=== PATIENT | female | born 1995 | race Caucasian/White ===

== ENCOUNTER 2022-04-29 08:00 | Outpatient (RCR) | payer OTHER, SELFPAY ==
--- NOTE | 2022-03-01 22:04 | P.PNPS_ITS ---
TMS Daily Progress Note Daily TMS Progress Note Date of Service: 03/01/22 Week #: 1 Treatment #(09-02): 1 PHQ-9 Pre-Treatment (08-30): 23 PHQ-9 Most Recent (08-30): 23 Reviewed: TMS Tech Note Reviewed Verification: I have reviewed the TMS Precision Machinist Note and agree with the contents. The patient remains a candidate to continue TMS treatment per protocol. Assessment and Plan (1) Depression, major, severe recurrence: Status: Acute (2) Post traumatic stress disorder (PTSD): Status: Acute Plan tms mapping completed
--- NOTE | 2022-03-01 22:11 | P.PNPS_ITS ---
TMS Daily Progress Note Daily TMS Progress Note Date of Service: 02/28/22 Week #: 1 Treatment #(09-02): 2 PHQ-9 Pre-Treatment (08-30): 23 PHQ-9 Most Recent (08-30): 23 Reviewed: TMS Tech Note Reviewed Verification: I have reviewed the TMS Liquid Loader Note and agree with the contents. The patient remains a candidate to continue TMS treatment per protocol.
--- NOTE | 2022-03-04 22:41 | HO.TMSDAILY2 ---
TMS Daily Progress Note Daily TMS Progress Note Date of Service: 03/04/22 Week #: 1 Treatment #(09-02): 4 PHQ-9 Pre-Treatment (08-30): 23 PHQ-9 Most Recent (08-30): 23 Reviewed: TMS Tech Note Reviewed Verification: I have reviewed the TMS Convention Services Manager Note and agree with the contents. The patient remains a candidate to continue TMS treatment per protocol.
--- NOTE | 2022-03-05 21:48 | HO.TMSDAILY2 ---
TMS Daily Progress Note Daily TMS Progress Note Date of Service: 03/05/22 Week #: 1 Treatment #(09-02): 5 PHQ-9 Pre-Treatment (08-30): 23 PHQ-9 Most Recent (08-30): 23 Reviewed: TMS Tech Note Reviewed Verification: I have reviewed the TMS Product Marketing Executive Note and agree with the contents. The patient remains a candidate to continue TMS treatment per protocol. Assessment and Plan (1) Depression, major, severe recurrence: Status: Acute (2) Post traumatic stress disorder (PTSD): Status: Acute Plan pt adjusting to tx
--- NOTE | 2022-03-11 21:33 | P.PNPS_ITS ---
TMS Daily Progress Note Daily TMS Progress Note Date of Service: 03/06/22 Week #: 2 Treatment #(09-02): 6 PHQ-9 Pre-Treatment (08-30): 23 PHQ-9 Most Recent (08-30): 23 Reviewed: TMS Tech Note Reviewed Verification: I have reviewed the TMS Contract Specialist Note and agree with the contents. The patient remains a candidate to continue TMS treatment per protocol.
--- NOTE | 2022-03-11 21:34 | HO.TMSDAILY2 ---
TMS Daily Progress Note Daily TMS Progress Note Date of Service: 03/07/22 Week #: 2 Treatment #(09-02): 7 PHQ-9 Pre-Treatment (08-30): 23 PHQ-9 Most Recent (08-30): 23 Reviewed: TMS Tech Note Reviewed Verification: I have reviewed the TMS Casting House Worker Note and agree with the contents. The patient remains a candidate to continue TMS treatment per protocol.
--- NOTE | 2022-03-11 21:36 | HO.TMSDAILY2 ---
TMS Daily Progress Note Daily TMS Progress Note Date of Service: 03/11/22 Week #: 2 Treatment #(09-02): 8 PHQ-9 Pre-Treatment (08-30): 23 PHQ-9 Most Recent (08-30): 23 Reviewed: TMS Tech Note Reviewed Verification: I have reviewed the TMS Director Of Retail Merchandising Note and agree with the contents. The patient remains a candidate to continue TMS treatment per protocol.
--- NOTE | 2022-03-11 21:38 | HO.TMSDAILY2 ---
TMS Daily Progress Note Daily TMS Progress Note Date of Service: 03/11/22 Week #: 2 Treatment #(09-02): 9 PHQ-9 Pre-Treatment (08-30): 23 PHQ-9 Most Recent (08-30): 23 Reviewed: TMS Tech Note Reviewed Verification: I have reviewed the TMS Carpenter Cradle And Dolly Note and agree with the contents. The patient remains a candidate to continue TMS treatment per protocol.
--- NOTE | 2022-03-13 08:33 | HO.TMSDAILY2 ---
TMS Daily Progress Note Daily TMS Progress Note Date of Service: 03/13/22 Week #: 2 Treatment #(09-02): 10 PHQ-9 Pre-Treatment (08-30): 23 PHQ-9 Most Recent (08-30): 23 Reviewed: TMS Tech Note Reviewed Verification: I have reviewed the TMS Manufacturing Engineering Director Note and agree with the contents. The patient remains a candidate to continue TMS treatment per protocol.
--- NOTE | 2022-03-15 09:31 | HO.TMSDAILY2 ---
TMS Daily Progress Note Daily TMS Progress Note Date of Service: 03/14/22 Week #: 3 Treatment #(09-02): 11 PHQ-9 Pre-Treatment (08-30): 23 PHQ-9 Most Recent (08-30): 23 Reviewed: TMS Tech Note Reviewed Verification: I have reviewed the TMS Senior Account Clerk Note and agree with the contents. The patient remains a candidate to continue TMS treatment per protocol.
--- NOTE | 2022-03-15 09:31 | HO.TMSDAILY2 ---
TMS Daily Progress Note Daily TMS Progress Note Date of Service: 03/15/22 Week #: 3 Treatment #(09-02): 12 PHQ-9 Pre-Treatment (08-30): 23 PHQ-9 Most Recent (08-30): 23 Reviewed: TMS Tech Note Reviewed Verification: I have reviewed the TMS Policyholder Information Clerk Note and agree with the contents. The patient remains a candidate to continue TMS treatment per protocol.
--- NOTE | 2022-03-18 09:32 | P.PNPS_ITS ---
TMS Daily Progress Note Daily TMS Progress Note Date of Service: 03/18/22 Week #: 3 Treatment #(09-02): 13 PHQ-9 Pre-Treatment (08-30): 23 PHQ-9 Most Recent (08-30): 23 Reviewed: TMS Tech Note Reviewed Verification: I have reviewed the TMS Regulator Pin Inserter Note and agree with the contents. The patient remains a candidate to continue TMS treatment per protocol. no change noted
--- NOTE | 2022-03-22 16:31 | P.PNPS_ITS ---
TMS Daily Progress Note Daily TMS Progress Note Date of Service: 03/19/22 Week #: 3 Treatment #(09-02): 14 PHQ-9 Pre-Treatment (08-30): 23 PHQ-9 Most Recent (08-30): 23 Reviewed: TMS Tech Note Reviewed Verification: I have reviewed the TMS Calibration Laboratory Technician Note and agree with the contents. The patient remains a candidate to continue TMS treatment per protocol. still no change
--- NOTE | 2022-03-22 16:36 | P.PNPS_ITS ---
TMS Daily Progress Note Daily TMS Progress Note Date of Service: 03/20/22 Week #: 3 Treatment #(09-02): 15 PHQ-9 Pre-Treatment (08-30): 23 PHQ-9 Most Recent (08-30): 23 Reviewed: TMS Tech Note Reviewed Verification: I have reviewed the TMS Open Claims Representative Note and agree with the contents. The patient remains a candidate to continue TMS treatment per protocol.
--- NOTE | 2022-03-22 16:39 | HO.TMSDAILY2 ---
TMS Daily Progress Note Daily TMS Progress Note Date of Service: 03/21/22 Week #: 4 Treatment #(09-02): 16 PHQ-9 Pre-Treatment (08-30): 23 PHQ-9 Most Recent (08-30): 23 Reviewed: TMS Tech Note Reviewed Verification: I have reviewed the TMS Press Setter Note and agree with the contents. The patient remains a candidate to continue TMS treatment per protocol. Assessment and Plan (1) Depression, major, severe recurrence: Status: Acute (2) Post traumatic stress disorder (PTSD): Status: Acute Plan would consider remap
--- NOTE | 2022-03-22 16:41 | HO.TMSDAILY2 ---
TMS Daily Progress Note Daily TMS Progress Note Date of Service: 03/22/22 Week #: 4 Treatment #(09-02): 17 PHQ-9 Pre-Treatment (08-30): 23 PHQ-9 Most Recent (08-30): 23 Reviewed: TMS Tech Note Reviewed Verification: I have reviewed the TMS Specialist Wound Care Note and agree with the contents. The patient remains a candidate to continue TMS treatment per protocol.
--- NOTE | 2022-03-25 16:43 | P.PNPS_ITS ---
TMS Daily Progress Note Daily TMS Progress Note Date of Service: 03/25/22 Week #: 4 Treatment #(09-02): 18 PHQ-9 Pre-Treatment (08-30): 23 PHQ-9 Most Recent (08-30): 23 Reviewed: TMS Tech Note Reviewed Verification: I have reviewed the TMS Aged Or Disabled Carer Note and agree with the contents. The patient remains a candidate to continue TMS treatment per protocol. Assessment and Plan (1) Post traumatic stress disorder (PTSD): Status: Acute (2) Depression, major, severe recurrence: Status: Acute Plan some improvement noted consider remap
--- NOTE | 2022-03-26 22:14 | P.PNPS_ITS ---
TMS Daily Progress Note Daily TMS Progress Note Date of Service: 03/26/22 Week #: 4 Treatment #(09-02): 19 PHQ-9 Pre-Treatment (08-30): 23 PHQ-9 Most Recent (08-30): 23 Reviewed: TMS Tech Note Reviewed Verification: I have reviewed the TMS Risk And Insurance Consultant Note and agree with the contents. The patient remains a candidate to continue TMS treatment per protocol. Assessment and Plan (1) Post traumatic stress disorder (PTSD): Status: Acute (2) Depression, major, severe recurrence: Status: Acute Plan PT may benefit from remapping
--- NOTE | 2022-04-02 14:33 | HO.TMSDAILY2 ---
TMS Daily Progress Note Daily TMS Progress Note Date of Service: 03/28/22 Treatment #(09-02): 19 PHQ-9 Pre-Treatment (08-30): 23 PHQ-9 Most Recent (08-30): 23 Verification: I have reviewed the TMS Music Producer Note and agree with the contents. The patient remains a candidate to continue TMS treatment per protocol.
--- NOTE | 2022-04-02 15:16 | P.PNPS_ITS ---
TMS Daily Progress Note Daily TMS Progress Note Date of Service: 03/28/22 Week #: 4 Treatment #(09-02): 20 PHQ-9 Pre-Treatment (08-30): 23 PHQ-9 Most Recent (08-30): 18 Reviewed: TMS Mapping/Re-mapping completed Verification: I have reviewed the TMS Automation And Controls Instructor Note and agree with the contents. The patient remains a candidate to continue TMS treatment per protocol. Pt seen remapping completed no c/o side effects remapping completed Assessment and Plan (1) Depression, major, severe recurrence: Status: Acute (2) Post traumatic stress disorder (PTSD): Status: Acute Plan remapping completed monitor response
--- NOTE | 2022-04-04 09:57 | P.PNPS_ITS ---
TMS Daily Progress Note Daily TMS Progress Note Date of Service: 04/10/22 Week #: 5 Treatment #(09-02): 25 PHQ-9 Pre-Treatment (08-30): 23 PHQ-9 Most Recent (08-30): 18 Reviewed: TMS Tech Note Reviewed Verification: I have reviewed the TMS Formal Wear Rental Clerk Note and agree with the contents. The patient remains a candidate to continue TMS treatment per protocol.
--- NOTE | 2022-04-09 21:06 | P.PNPS_ITS ---
TMS Daily Progress Note Daily TMS Progress Note Date of Service: 04/09/22 Week #: 6 Treatment #(09-02): 27 PHQ-9 Pre-Treatment (08-30): 23 PHQ-9 Most Recent (08-30): 18 Reviewed: TMS Tech Note Reviewed Verification: I have reviewed the TMS Medicare Sales Executive Note and agree with the contents. The patient remains a candidate to continue TMS treatment per protocol. Assessment and Plan (1) Post traumatic stress disorder (PTSD): Status: Acute (2) Depression, major, severe recurrence: Status: Acute Plan ? twitching couple times day unclear sx
--- NOTE | 2022-04-10 21:04 | P.PNPS_ITS ---
TMS Daily Progress Note Daily TMS Progress Note Date of Service: 04/05/22 Week #: 6 Treatment #(09-02): 26 PHQ-9 Pre-Treatment (08-30): 23 PHQ-9 Most Recent (08-30): 18 Reviewed: TMS Tech Note Reviewed Verification: I have reviewed the TMS Calender Wind Up Helper Note and agree with the contents. The patient remains a candidate to continue TMS treatment per protocol. Assessment and Plan (1) Depression, major, severe recurrence: Status: Acute (2) Post traumatic stress disorder (PTSD): Status: Acute Plan continue plan of care
--- NOTE | 2022-04-10 21:09 | P.PNPS_ITS ---
TMS Daily Progress Note Daily TMS Progress Note Date of Service: 04/10/22 Week #: 6 Treatment #(09-02): 28 PHQ-9 Pre-Treatment (08-30): 23 PHQ-9 Most Recent (08-30): 18 Reviewed: TMS Tech Note Reviewed Verification: I have reviewed the TMS Cushion Worker Note and agree with the contents. The patient remains a candidate to continue TMS treatment per protocol.
--- NOTE | 2022-04-11 09:53 | HO.TMSDAILY2 ---
TMS Daily Progress Note Daily TMS Progress Note Date of Service: 04/11/22 Week #: 6 Treatment #(09-02): 29 PHQ-9 Pre-Treatment (08-30): 23 PHQ-9 Most Recent (08-30): 18 Reviewed: TMS Tech Note Reviewed Verification: I have reviewed the TMS Environmental Compliance Specialist Note and agree with the contents. The patient remains a candidate to continue TMS treatment per protocol. Assessment and Plan (1) Post traumatic stress disorder (PTSD): Status: Acute (2) Depression, major, severe recurrence: Status: Acute Plan ? tremor will review
--- NOTE | 2022-04-15 12:58 | P.PNPS_ITS ---
TMS Daily Progress Note Daily TMS Progress Note Date of Service: 04/15/22 Week #: 6 Treatment #(09-02): 30 PHQ-9 Pre-Treatment (08-30): 23 PHQ-9 Most Recent (08-30): 18 Reviewed: TMS Tech Note Reviewed Verification: I have reviewed the TMS Wool Cleaner Note and agree with the contents. The patient remains a candidate to continue TMS treatment per protocol. Assessment and Plan (1) Post traumatic stress disorder (PTSD): Status: Acute (2) Depression, major, severe recurrence: Status: Acute Plan saul range of affect
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
--- NOTE | 2022-04-17 22:50 | P.PNPS_ITS ---
TMS Daily Progress Note Daily TMS Progress Note Date of Service: 04/17/22 Week #: 7 Treatment #(09-02): 31 PHQ-9 Pre-Treatment (08-30): 23 PHQ-9 Most Recent (08-30): 18 Reviewed: TMS Tech Note Reviewed Verification: I have reviewed the TMS Lithograph Designer Note and agree with the contents. The patient remains a candidate to continue TMS treatment per protocol.
--- NOTE | 2022-04-22 17:38 | HO.TMSDAILY2 ---
TMS Daily Progress Note Daily TMS Progress Note Date of Service: 04/22/22 Week #: 7 Treatment #(09-02): 33 PHQ-9 Pre-Treatment (08-30): 23 PHQ-9 Most Recent (08-30): 18 Reviewed: TMS Tech Note Reviewed Verification: I have reviewed the TMS Criminalist Technician Note and agree with the contents. The patient remains a candidate to continue TMS treatment per protocol.No clwear improvement noted
--- NOTE | 2022-04-24 21:47 | HO.TMSDAILY2 ---
TMS Daily Progress Note Daily TMS Progress Note Date of Service: 04/24/22 Week #: 8 Treatment #(09-02): 34 PHQ-9 Pre-Treatment (08-30): 23 PHQ-9 Most Recent (08-30): 18 Reviewed: TMS Tech Note Reviewed Verification: I have reviewed the TMS Product Operations Associate Note and agree with the contents. The patient remains a candidate to continue TMS treatment per protocol.
--- NOTE | 2022-04-24 21:55 | P.PNPS_ITS ---
TMS Daily Progress Note Daily TMS Progress Note Date of Service: 04/24/22 Week #: 8 Treatment #(09-02): 34 PHQ-9 Pre-Treatment (08-30): 23 PHQ-9 Most Recent (08-30): 18 Reviewed: TMS Tech Note Reviewed Verification: I have reviewed the TMS Trailer Tank Truck Driver Note and agree with the contents. The patient remains a candidate to continue TMS treatment per protocol.No change to this point
--- NOTE | 2022-04-26 12:19 | HO.TMSDAILY2 ---
TMS Daily Progress Note Daily TMS Progress Note Date of Service: 04/26/22 Week #: 8 Treatment #(09-02): 35 PHQ-9 Pre-Treatment (08-30): 23 PHQ-9 Most Recent (08-30): 18 Reviewed: TMS Tech Note Reviewed Verification: I have reviewed the TMS Engraver Pantograph Note and agree with the contents. The patient remains a candidate to continue TMS treatment per protocol.
--- NOTE | 2022-04-29 22:38 | HO.TMSDAILY2 ---
TMS Daily Progress Note Daily TMS Progress Note Date of Service: 04/29/22 Week #: 8 Treatment #(09-02): 36 PHQ-9 Pre-Treatment (08-30): 23 PHQ-9 Most Recent (08-30): 18 Reviewed: TMS Tech Note Reviewed Verification: I have reviewed the TMS Press Room Supervisor Note and agree with the contents. The patient remains a candidate to continue TMS treatment per protocol. Assessment and Plan (1) Depression, major, severe recurrence: Status: Acute (2) Post traumatic stress disorder (PTSD): Status: Acute Plan Patient has not shown significant improvement patient seen post treatment discussed additional options including apavamk patient will continue to see her psychiatric nurse practitioner Lexus lau
== END 2022-08-03 23:59 | disposition home or self-care (01) ==
LOC: HO.PTMS 08:00
PROVIDERS: Visit Provider Psychiatry & Neurology Psychiatry
DX: F33.2 Major depressive disorder, recurrent severe without psychotic features (principal); F43.10 Post-traumatic stress disorder, unspecified
CPT/HCPCS: 90868; 90869

== ENCOUNTER → 2023-01-27 09:58 | Outpatient (BNVA) | payer OTHER, SELFPAY | PROVIDERS: PCP Nurse Practitioner Adult Health; Visit Provider Anesthesiology ==

== ENCOUNTER 2023-03-04 15:07 | Outpatient (AMB) | payer OTHER, SELFPAY ==
--- NOTE | 2023-03-04 15:08 | MHC.OFFVIS ---
Intake Vital Signs 03/04/23 15:15 Height 5 ft 6 in Weight 270 lb BMI 43.6 BP 131/96 H Blood Pressure Location Rt brachial Position Sitting Pulse 102 H Pulse Source Pulse Oximeter Pulse Oximetry (%) 96 Oxygen Delivery Method Room Air Intake Visit Reasons: ONE MONTH FOLLOW UP Intake Note: pain today 01/11 Fresco Artist Required: No Accompanied by: Self / Same As Patient Allergies lamotrigine [From Lamictal] Allergy (Mild, Verified 01/27/23 10:04) rash HPI HPI Comments History of Present Illness Details Patient presents today for medication review and follow up. Reports recent 02/13/23-02/21/23 psychiatric crisis, was in [facility] inpatient, for first time inpatient, but reports having done virtual partial for psychiatric to depression, anxiety and PTSD. Reports good tolarance with Baclofen and notices not getting sharp pain anymore but continues to endorse widespread body pain mainly in her arms and legs which they describe as aching. Patient has not started physical therapy yet due to psychiatric inpatient stay and will reach out to our PT department to schedule first session. Denies any recent cough, cold, infection, fever or other significant changes in medical history since last office visit. PRIOR: Sravanthi Hoffman) is very pleasant 27 years old female who presents in my office with complains on pain all over the body. She reports her pain affects her shoulders bilateral arms bilateral hands her neck lower back bilateral thighs bilateral knees bilateral lower legs and bilateral feet. She reports that this pain started in 2018. She denies any inciting events. She reports her pain on average 6/10. She reports most significant pain in the area of the bilateral hands and bilateral forearms. She stated that this pain was related to overuse of the hands when she was in college studying arts and painting. She was under care of sponge packer and appropriate workup was made to rule out modal logical conditions and put diagnosis of fibromyalgia for this patient. She is suffering from narcolepsy and unable to sleep normally. She can take care of herself she can not function normally she can not do activities of daily living. She is working full-time. She tried Lyrica and gabapentin for her pain. Appropriate escalation seem to be done for this patient she reports 1800 of gabapentin maximal does with no improvement and no side effects. She admits Lyrica also did not help her pain, she does not remember if Lyrica gave her any significant pain improvement. In terms of tissue damage she reports her pain is hot burning, searing, tingling, stinging, dull, heavy, tiring, exhausting, spreading, piercing, tight, tearing. She never had any images of her spine. She never had formal physical therapy address to fibromyalgia. She had only occupational therapy for the arm and hand pain with minimal relief. She has 10s unit at home and she uses it with minimal relief. Her past medical history significant for headaches, fatigue anxiety and depression narcolepsy heart murmur shortness of breath and ovarian cyst. She denies any past surgical history. She denies smoking cigarettes she drinks once a week small amount of alcohol she drinks coffee and caffeinated beverages and she consumes cannabis products. [facility] Medical History Depression, major, severe recurrence Post traumatic stress disorder (PTSD) Review of Systems Const All systems reviewed & are unremarkable except as noted in HPI and below Physical Exam Vital Signs: Last Vital Signs Pulse 102 H 03/04/23 15:15 BP 131/96 H 03/04/23 15:15 Pulse Ox 96 03/04/23 15:15 Oxygen Delivery Method Room Air 03/04/23 15:15 BMI result Body Mass Index 43.6 General: Appears afebrile. Alert and oriented. Mood and affect appropriate. Follows and participates in conversation appropriately. Respiratory effort is unlabored. Able to transition from sit to stand unassisted. Ambulates with bilaterally normal heel strike and toe off. Results Reviewed Results Reviewed: No imaging reports are available for review today. Assessment & Plan Assessment & Plan (1) Fibromyalgia: Code(s): M79.7 - Fibromyalgia (2) Chronic pain syndrome: Code(s): G89.4 - Chronic pain syndrome (3) Myofascial pain: Code(s): M79.18 - Myalgia, other site Plan Patient has been tolerated Baclofen well without any side effects, good tolerance and change in pain quality from sharp pain to aching pain, mainly in arms and legs and decreased muscle stiffness in neck. Will slowly increase Baclofen to 20 mg BID. Continue to monitor for any side effects and counseled patient not to stop medication abruptly due to undesired side effects of withdrawl which we reviewed in greater detail. Start Physical therapy as planned. Continue daily physical activity, good posture, adequate hydration, weight optimization and sleep hygiene. All questions and concerns have been answered and patient agreed with the plan. Follow up with Dr. Workman for medication review and sooner if needed. Medications: Changed From baclofen 10 mg PO TID 30 days 90 tabs 6RF G89.4 - Chronic pain syndrome, M79.7 - Fibromyalgia To baclofen 20 mg PO BID 30 days 60 tabs 2RF muscle spasms, fibromyalgia G89.4 - Chronic pain syndrome, M79.7 - Fibromyalgia Coding Level of Care Code Est Pt Level 4 (80210) Diagnoses Fibromyalgia M79.7 Chronic pain syndrome G89.4 Myofascial pain M79.18
[2023-03-04 15:15] VITALS: BP 131/96; PULSE 102; O2SAT 96; BMI 43.6
== END 2023-03-04 15:32 | disposition home or self-care (01) ==
PROVIDERS: PCP Nurse Practitioner Adult Health; Visit Provider Nurse Practitioner Family
DX: M79.7 Fibromyalgia (principal); G89.4 Chronic pain syndrome
CPT/HCPCS: 99214

== ENCOUNTER → 2023-03-04 15:07 | Outpatient (BNVA) | payer OTHER, SELFPAY | PROVIDERS: PCP Nurse Practitioner Adult Health; Visit Provider Nurse Practitioner Family ==

== ENCOUNTER 2023-06-18 16:00 | Outpatient (RCR) | payer OTHER, SELFPAY ==
--- NOTE | 2023-05-28 09:00 | MHC.PT.EP ---
[facility] [place] Office [place] Office [place] Office [address] Lupe Dewey [address] [phone] F: [phone] F: [phone] F: [phone] F: [phone] Physical Therapy Plan of Care Date of Evaluation: 05/28/23 Date of Surgery: NA Diagnosis: Chronic pain syndrome Fibromyalgia Assessment: Mina is a 28 year old patient who is referred to PT for chronic pain syndrome, fibromyalgia . They report of having pain in their entire body for about 10-12 years. They were given the above diagnosis about 4 years back. Per pt their B LE symptoms got worse about 1 year back. On PT examination she presented with 7/10 pain throughout their body, lumbar and B LE gross ROM WFL, decreased strength in TrA and B LE, altered posture, balance and gait. Due to these impairments they have pain with all ADLS. They would benefit from skilled PT to address the aforementioned impairments and improve tolerance to functional activities. Frequency and Duration: The patient will be seen 2/week for 6 weeks Short Term Goals: 1. Pt will demonstrate initiation of HEP and be independent with them in 2 weeks. 2. Pt will have 50% decrease in pain which will help improve tolerance to standing and walking (can perform activities for 30 minutes without pain) in 3 weeks. Jail Goals: 1. Pt will demonstrate an increase in muscle strength by 1 grade which will help them ambulate without AD in 5 weeks. 2. Pt will be independent with HEP for symptom management and maintenance following d/c in 6 weeks. Treatment Plan: Modalities to reduce pain, spasms and effusion. Manual therapy to restore motion and function. Therapeutic exercise to improve strength and flexibility. Neuromuscular re-education for posture and balance. Therapeutic activities to return to functional activities of daily living. Electronically signed by: Joy Mcpherson PT DPT Please sign and return to therapist. Thank you for your referral.
--- NOTE | 2023-06-23 16:05 | MHC.PT.DC ---
[facility] [place] Office [place] Office [place] Office [address] Lupe Dewey [address] [phone] F: [phone] F: [phone] F: [phone] F: [phone] Physical Therapy Discharge Report Diagnosis: Chronic pain syndrome Fibromyalgia Date of Surgery: NA Date of Evaluation: 05/28/23 Date of Discharge: 06/23/23 Treatments to Date: 7 Cancellations to Date: 0 No Shows to Date: 0 Discharge Status: Improved Function Independent with HEP Discharge Summary: Mina completed 7 PT visits and has made significant improvements. She is independent with all her HEP. She is therefore being d/c from PT. Mina was in agreement with the plan. Electronically signed by: Joy Mcpherson, PT DPT Please sign and return to therapist. Thank you for your referral.
== END 2023-06-23 16:06 | disposition home or self-care (01) ==
LOC: HO.PT 16:00
PROVIDERS: PCP Nurse Practitioner Adult Health; Visit Provider Anesthesiology
DX: S93.402A Sprain of unspecified ligament of left ankle, initial encounter (principal); M21.41 Flat foot [pes planus] (acquired), right foot; M21.42 Flat foot [pes planus] (acquired), left foot
CPT/HCPCS: 97110; 97112; 97162

== ENCOUNTER 2023-06-25 12:54 | Outpatient (AMB) | payer OTHER, SELFPAY ==
--- NOTE | 2023-06-25 13:03 | A.OFFVIS_ITS ---
Intake Vital Signs 06/25/23 13:07 Height 5 ft 6 in Weight 291 lb BMI 47.0 BP 142/92 H Blood Pressure Location Lt brachial Position Sitting Respiration 18 Pulse 98 Pulse Source Pulse Oximeter Pulse Oximetry (%) 99 Oxygen Delivery Method Room Air Intake Visit Reasons: med review- must keep this appt do not RS/conf Allergies lamotrigine [From Lamictal] Allergy (Mild, Verified 06/25/23 13:06) rash HPI HPI Comments History of Present Illness Details Mina presents to the office today for follow up, medication review. Patient initially evaluated by Dr Workman for fibromyalgia and started on bacl ofen. Dose was escalated at last visit with Hermelinda MYSTERY SHOPPER. Patient reports no change in pain since starting the baclofen. Overdue for sleep study, has narcolepsy treated with medication. No longer falling asleep during the day but waking up constantly throughout the night. Has never completed CBT for sleep or pain. Currently going to [employer] and swimming once weekly but only helps while in the pool, feels strain afterwards. 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 Takes meds as prescribed. Denies SI/HI/SH. Prior: Patient presents today for medication review and follow up. Reports recent 02/13/23-02/21/23 psychiatric crisis, was in [facility] inpatient, for first time inpatient, but reports having done virtual partial for psychiatric to depression , anxiety and PTSD. Reports good tolarance with Baclofen and notices not getting sharp pain anymore but continues to endorse widespread body pain mainly in her arms and legs which they describe as aching. Patient has not started physical therapy yet due to psychiatric inpatient stay and will reach out to our PT department to schedule first session. Denies any recent cough, cold, infection, fever or other significant changes in medical history since last office visit. PRIOR: Sravanthi Hoffman) is very pleasant 27 years old female who presents in my office with complains on pain all over the body. She reports her pain affects her shoulders bilateral arms bilateral hands her neck lower back bilateral thighs bilateral knees bilateral lower legs and bilateral feet. She reports that this pain started in 2018. She denies any inciting events. She reports her pain on average 6/10. She reports most significant pain in the area of the bilateral hands and bilateral forearms. She stated that this pain was related to overuse of the hands when she was in college studying arts and painting. She was under care of wharfinger chief and appropriate workup was made to rule out modal logical conditions and put diagnosis of fibromyalgia for this patient. She is suffering from narcolepsy and unable to sleep normally. She can take care of herself she can not function normally she can not do activities of daily living. She is working full-time. She tried Lyrica and gabapentin for her pain. Appropriate escalation seem to be done for this patient she reports 1800 of gabapentin maximal does with no improvement and no side effects. She admits Lyrica also did not help her pain, she does not remember if Lyrica gave her any significant pain improvement. In terms of tissue damage she reports her pain is hot burning, searing, tingling, stinging, dull, heavy, tiring, exhausting, spreading, piercing, tight, tearing. She never had any images of her spine. She never had formal physical therapy address to fibromyalgia. She had only occupational therapy for the arm and hand pain with minimal relief. She has 10s unit at home and she uses it with minimal relief. Her past medical history significant for headaches, fatigue anxiety and depression narcolepsy heart murmur shortness of breath and ovarian cyst. She denies any past surgical history. She denies smoking cigarettes she drinks once a week small amount of alcohol she drinks coffee and caffeinated beverages and she consumes cannabis products. [facility] Medical History Depression, major, severe recurrence Post traumatic stress disorder (PTSD) Review of Systems Const All systems reviewed & are unremarkable except as noted in HPI and below Physical Exam General: awake, alert, oriented. Answers questions appropriately. Fully engaged in examination. Skin: warm, dry, intact HEENT: Normocephalic. Hearing intact. Cardiac: External chest normal in appearance. Respiratory: No cough, audible wheezing or stridor. Abdomen: without gross distension. MS: No obvious swelling or deformities. Neurological: Oriented to person, place, time and situation. Thought process intact. ambulates with a cane. Psychiatric: Appropriate mood and affect. Good judgment and insight. Assessment & Plan Assessment & Plan (1) Fibromyalgia: Code(s): M79.7 - Fibromyalgia (2) Chronic pain syndrome: Code(s): G89.4 - Chronic pain syndrome (3) Myofascial pain: Code(s): M79.18 - Myalgia, other site Plan Mina presents to the office today for follow up. Reports no change in symptoms with baclofen, does not wish to continue on this medication. Has enough at home to taper off, instructed on tapering plan. Verbalizes understanding. Will call to schedule sleep study Will schedule follow up with Rheumatology Referral placed for CBT for pain and sleep to [facility]rett in [place]. Follow up in the office after CBT, sooner if needed. Orders: Referrals Behavioral Health Referral M79.7 - Fibromyalgia Coding Level of Care Code Est Pt Level 3 (10527) Diagnoses Fibromyalgia M79.7 Chronic pain syndrome G89.4 Myofascial pain M79.18
[2023-06-25 13:07] VITALS: BP 142/92; PULSE 98; RESP 18; O2SAT 99; BMI 47.0
== END 2023-06-25 13:36 | disposition home or self-care (01) ==
PROVIDERS: PCP Nurse Practitioner Adult Health; Visit Provider Registered Nurse Emergency
DX: G89.4 Chronic pain syndrome (principal); M79.18 Myalgia, other site; Z79.891 Long term (current) use of opiate analgesic
CPT/HCPCS: 99213

== ENCOUNTER → 2023-06-25 12:54 | Outpatient (BNVA) | payer OTHER, SELFPAY | PROVIDERS: PCP Nurse Practitioner Adult Health; Visit Provider Registered Nurse Emergency ==

== ENCOUNTER 2024-05-05 13:53 | Outpatient (AMB) | payer MEDICAID, SELFPAY ==
[2024-05-05 14:02] VITALS: BP 144/93; PULSE 124; O2SAT 99; BMI 49.2
--- NOTE | 2024-05-05 14:02 | A.OFFVIS_ITS ---
Vital Signs 05/05/24 14:02 Height 5 ft 6 in Weight 305 lb BMI 49.2 BP 144/93 H Blood Pressure Location Rt brachial Position Sitting Pulse 124 H Pulse Source Pulse Oximeter Pulse Oximetry (%) 99 Oxygen Delivery Method Room Air Intake Visit Reasons: Chronic pain Syndrome Allergies lamotrigine [From Lamictal] Allergy (Mild, Verified 05/05/24 13:59) rash Medication List - Last Reconciled 05/05/24 by Lynda Graham amitriptyline 50 mg PO BEDTIME aripiprazole 15 mg PO DAILY vprfobl-yxvasasqnfmxc-jfyjukia 250-250-65 mg (Excedrin Extra Strength) 1 tab PO Q4-6H PRN desvenlafaxine succinate ER 100 mg PO DAILY levonorgestrel (Mirena) intrauterine lorazepam 0.5 mg PO TID PRN methylphenidate HCl (Ritalin) 10 mg PO BID methylphenidate HCl ER (Concerta) 27 mg PO QAM modafinil 400 mg PO DAILY HPI Comments Details: Patient presents back to the office today follow up Last visit here 06/2023 Since last visit pain has worsened. They have stopped taking baclofen since last visit Pain is ?all over ? Has tried gabapentin and Lyrica in the past, is unsure what doses they were taking but would be willing to retry Prior: Mina presents to the office today for follow up, medication review. Patient initially evaluated by Dr Workman for fibromyalgia and started on baclofen. Dose was escalated at last visit with Hermelinda TRANSPORT SPECIALIST. Patient reports no change in pain since starting the baclofen. Overdue for sleep study, has narcolepsy treated with medication. No longer fa lling asleep during the day but waking up constantly throughout the night. Has never completed CBT for sleep or pain. Currently going to [employer] and swimming once weekly but only helps while in the pool, feels strain afterwards. 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 Takes meds as prescribed. Denies SI/HI/SH. Prior: Patient presents today for medication review and follow up. Reports recent 02/13/23-02/21/23 psychiatric crisis, was in [facility] inpatient, for first time inpatient, but reports having done virtual partial for psychiatric to depre ssion, anxiety and PTSD. Reports good tolarance with Baclofen and notices not getting sharp pain anymore but continues to endorse widespread body pain mainly in her arms and legs which they describe as aching. Patient has not started physical therapy yet due to psychiatric inpatient stay and will reach out to our PT department to schedule first session. Denies any recent cough, cold, infection, fever or other significant changes in medical history since last office visit. PRIOR: Sravanthi Hoffman) is very pleasant 27 years old female who presents in my office with complains on pain all over the body. She reports her pain affects her shoulders bilateral arms bilateral hands her neck lower back bilateral thighs bilateral knees bilateral lower legs and bilateral feet. She reports that this pain started in 2018. She denies any inciting events. She reports her pain on average 6/10. She reports most significant pain in the area of the bilateral hands and bilateral forearms. She stated that this pain was related to overuse of the hands when she was in college studying arts and painting. She was under care of non destructive testing supervisor and appropriate workup was made to rule out modal logical conditions and put diagnosis of fibromyalgia for this patient. She is suffering from narcolepsy and unable to sleep normally. She can take care of herself she can not function normally she can not do activities of daily living. She is working full-time. She tried Lyrica and gabapentin for her pain. Appropriate escalation seem to be done for this patient she reports 1800 of gabapentin maximal does with no improvement and no side effects. She admits Lyrica also did not help her pain, she does not remember if Lyrica gave her any significant pain improvement. In terms of tissue damage she reports her pain is hot burning, searing, tingling, stinging, dull, heavy, tiring, exhausting, spreading, piercing, tight, tearing. She never had any images of her spine. She never had formal physical therapy address to fibromyalgia. She had only occupational therapy for the arm and hand pain with minimal relief. She has 10s unit at home and she uses it with minimal relief. Her past medical history significant for headaches, fatigue anxiety and depression narcolepsy heart murmur shortness of breath and ovarian cyst. She denies any past surgical history. She denies smoking cigarettes she drinks once a week small amount of alcohol she drinks coffee and caffeinated beverages and she consumes cannabis products. [facility] Medical History Depression, major, severe recurrence Post traumatic stress disorder (PTSD) Review of Systems Const All systems reviewed & are unremarkable except as noted in HPI and below Physical Exam Vital Signs: Last Vital Signs Pulse 124 H 05/05/24 14:02 BP 144/93 H 05/05/24 14:02 Pulse Ox 99 05/05/24 14:02 Oxygen Delivery Method Room Air 05/05/24 14:02 BMI result Body Mass Index 49.2 General: awake, alert, oriented. Answers questions appropriately. Fully engaged in examination. Skin: warm, dry, intact HEENT: Normocephalic. Hearing intact. Cardiac: External chest normal in appearance. Respiratory: No cough, audible wheezing or stridor. Abdomen: without gross distension. MS: No obvious swelling or deformities. Neurological: Oriented to person, place, time and situation. Thought process intact. ambulates with a cane. Psychiatric: Appropriate mood and affect. Good judgment and insight. Assessment & Plan Assessment & Plan (1) Fibromyalgia: Code(s): M79.7 - Fibromyalgia Category: Medical (2) Chronic pain syndrome: Code(s): G89.4 - Chronic pain syndrome Category: Medical (3) Myofascial pain: Code(s): M79.18 - Myalgia, other site Category: Medical Plan Mina presents to the office today for follow up. Will try gabapentin 300 mg p.o. t.i.d.. Patient advised on cautions views. Follow up in 6 weeks, sooner if needed. Medications: New gabapentin 300 mg PO TID 90 caps 1RF Coding Level of Care Code Est Pt Level 3 (34108) Complex EM visit Add On G2211 Diagnoses Fibromyalgia M79.7 Chronic pain syndrome G89.4 Myofascial pain M79.18
== END 2024-05-05 14:17 | disposition home or self-care (01) ==
PROVIDERS: PCP Nurse Practitioner Adult Health; Visit Provider Registered Nurse Emergency
DX: M79.7 Fibromyalgia (principal); G89.4 Chronic pain syndrome; M79.18 Myalgia, other site
CPT/HCPCS: 99213; G2211

== ENCOUNTER → 2024-05-05 13:53 | Outpatient (BNVA) | payer MEDICAID, SELFPAY | PROVIDERS: PCP Nurse Practitioner Adult Health; Visit Provider Registered Nurse Emergency | DX: M79.7 Fibromyalgia (principal); M79.18 Myalgia, other site; G89.4 Chronic pain syndrome | CPT/HCPCS: 99212 ==

== ENCOUNTER 2024-06-17 13:00 | Outpatient (AMB) | payer MEDICAID, SELFPAY ==
--- NOTE | 2024-06-17 13:13 | MHC.OFFVIS ---
Intake Visit Reasons: 6 weeks F/U Allergies lamotrigine [From Lamictal] Allergy (Mild, Verified 05/05/24 13:59) rash HPI Comments Details: Telephone visit today completed for follow-up, medication management Her last visit prescribed gabapentin 300 mg 3 times daily. Patient has been taking this consistently up until the weekend when they developed a stomach virus and was vomiting. Overall they feel like the gabapentin has helped the pain some, would like to remain on this dose as they are tolerating it well with no notable side effects Prior: Patient presents back to the office today follow up Last visit here 06/2023 Since last visit pain has worsened. They have stopped taking baclofen since last visit Pain is ?all over ? Has tried gabapentin and Lyrica in the past, is unsure what doses they were taking but would be willing to retry Prior: Mina presents to the office today for follow up, medication review. Patient initially evaluated by Dr Workman for fibromyalgia and started on baclofen. Dose was escalated at last visit with Hermelinda BOILER HOUSE MECHANIC. Patient reports no change in pain since starting the baclofen. Overdue for sleep study, has narcolepsy treated with medication. No longer falling asleep during the day but waking up constantly throughout the night. Has never completed CBT for sleep or pain. Currently going to [employer] and swimming once weekly but only helps while in the pool, feels strain afterwards. 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 Takes meds as prescribed. Denies SI/HI/SH. Prior: Patient presents today for medication review and follow up. Reports recent 02/13/23-02/21/23 psychiatric crisis, was in [facility] inpatient, for first time inpatient, but reports having done virtual partial for psychiatric to depression, anxiety and PTSD. Reports good tolarance with Baclofen and notices not getting sharp pain anymore but continues to endorse widespread body pain mainly in her arms and legs which they describe as aching. Patient has not started physical therapy yet due to psychiatric inpatient stay and will reach out to our PT department to schedule first session. Denies any recent cough, cold, infection, fever or other significant changes in medical history since last office visit. PRIOR: Sravanthi Hoffman) is very pleasant 27 years old female who presents in my office with complains on pain all over the body. She reports her pain affects her shoulders bilateral arms bilateral hands her neck lower back bilateral thighs bilateral knees bilateral lower legs and bilateral feet. She reports that this pain started in 2018. She denies any inciting events. She reports her pain on average 6/10. She reports most significant pain in the area of the bilateral hands and bilateral forearms. She stated that this pain was related to overuse of the hands when she was in college studying arts and painting. She was under care of short filler bunch machine operator and appropriate workup was made to rule out modal logical conditions and put diagnosis of fibromyalgia for this patient. She is suffering from narcolepsy and unable to sleep normally. She can take care of herself she can not function normally she can not do activities of daily living. She is working full-time. She tried Lyrica and gabapentin for her pain. Appropriate escalation seem to be done for this patient she reports 1800 of gabapentin maximal does with no improvement and no side effects. She admits Lyrica also did not help her pain, she does not remember if Lyrica gave her any significant pain improvement. In terms of tissue damage she reports her pain is hot burning, searing, tingling, stinging, dull, heavy, tiring, exhausting, spreading, piercing, tight, tearing. She never had any images of her spine. She never had formal physical therapy address to fibromyalgia. She had only occupational therapy for the arm and hand pain with minimal relief. She has 10s unit at home and she uses it with minimal relief. Her past medical history significant for headaches, fatigue anxiety and depression narcolepsy heart murmur shortness of breath and ovarian cyst. She denies any past surgical history. She denies smoking cigarettes she drinks once a week small amount of alcohol she drinks coffee and caffeinated beverages and she consumes cannabis products. [facility] Medical History Depression, major, severe recurrence Post traumatic stress disorder (PTSD) Review of Systems Const All systems reviewed & are unremarkable except as noted in HPI and below Physical Exam Telephone visit only, physical exam and vital signs deferred Telehealth Telehealth Telehealth Platform: Telephone Location of provider rendering services: practice address Location of patient: address on file Patient Identification confirmed using: Name, : Yes Telehealth method: voice only Patient verbally consented to treatment: Yes Patient verbally consented to billing insurance company: Yes Patient informed of any privacy concerns related to visit: Yes Minutes spent on Phone/Video with Pt.: 8 Assessment & Plan Assessment & Plan (1) Fibromyalgia: Code(s): M79.7 - Fibromyalgia Category: Medical (2) Chronic pain syndrome: Code(s): G89.4 - Chronic pain syndrome Category: Medical (3) Myofascial pain: Code(s): M79.18 - Myalgia, other site Category: Medical Plan Telephone visit completed today for follow-up Continue with gabapentin 300 mg p.o. 3 times daily. Follow up in 3 months, sooner if needed. Medications: Refilled gabapentin 300 mg PO TID 90 caps 3RF Coding Level of Care Code Tele Est Pt Level 3 (61913) Complex EM visit Add On G2211 Diagnoses Fibromyalgia M79.7 Chronic pain syndrome G89.4 Myofascial pain M79.18
== END 2024-06-17 13:17 | disposition home or self-care (01) ==
LOC: HO.PMC 13:00
PROVIDERS: PCP Nurse Practitioner Adult Health; Visit Provider Registered Nurse Emergency
DX: M79.7 Fibromyalgia (principal); G89.4 Chronic pain syndrome; M79.18 Myalgia, other site
CPT/HCPCS: 99213; G2211

== ENCOUNTER → 2024-06-17 13:00 | Outpatient (BNVA) | payer MEDICAID, SELFPAY | PROVIDERS: PCP Nurse Practitioner Adult Health; Visit Provider Registered Nurse Emergency ==

== ENCOUNTER 2024-10-13 12:54 | Outpatient (AMB) | payer MEDICAID, SELFPAY ==
[2024-10-13 13:01] VITALS: BP 141/85; PULSE 100; RESP 16; O2SAT 99; BMI 50.0
--- NOTE | 2024-10-13 13:01 | A.OFFVIS_ITS ---
Vital Signs 10/13/24 13:01 Height 5 ft 6 in Weight 310 lb BMI 50.0 BP 141/85 H Blood Pressure Location Lt radial Position Sitting Respiration 16 Pulse 100 Pulse Source Pulse Oximeter Pulse Oximetry (%) 99 Oxygen Delivery Method Room Air Intake Visit Reasons: 4 month f/u Manager Customer Required: No Allergies lamotrigine [From Lamictal] Allergy (Mild, Verified 10/13/24 13:02) rash Medication List - Last Reconciled 10/13/24 by Marti Dennis LPN amitriptyline 50 mg PO BEDTIME aripiprazole 15 mg PO DAILY [id number] 250-250-65 mg (Excedrin Extra Strength) 1 tab PO Q4-6H PRN desvenlafaxine succinate ER 100 mg PO DAILY gabapentin 300 mg PO TID levonorgestrel (Mirena) intrauterine lorazepam 0.5 mg PO TID PRN methylphenidate HCl (Ritalin) 10 mg PO BID methylphenidate HCl ER (Concerta) 27 mg PO QAM solriamfetol (Sunosi) 150 mg PO DAILY HPI Comments Details: Patient presents back to the office today for follow-up chronic pain. Has been taking gabapentin but does not feel like this is providing much relief. Would like to taper off. Reports baclofen previously prescribed also did not help. Has tried Lyrica in the past without relief. Would be willing to try alternative muscle relaxer. Prior: Telephone visit today completed for follow-up, medication management Her last visit prescribed gabapentin 300 mg 3 times daily. Patient has been taking this consistently up until the weekend when they developed a stomach virus and was vomiting. Overall they feel like the gabapentin has helped the pain some, would like to remain on this dose as they are tolerating it well with no notable side effects Prior: Patient presents back to the office today follow up Last visit here 06/2023 Since last visit pain has worsened. They have stopped taking baclofen since last visit Pain is ?all over ? Has tried gabapentin and Lyrica in the past, is unsure what doses they were taking but would be willing to retry Prior: Mina presents to the office today for follow up, medication review. Patient initially evaluated by Dr Workman for fibromyalgia and started on baclofen. Dose was escalated at last visit with Hermelinda PULP MILL TEAM LEADER. Patient reports no change in pain since starting the baclofen. Overdue for sleep study, has narcolepsy treated with medication. No longer falling asleep during the day but waking up constantly throughout the night. Has never completed CBT for sleep or pain. Currently going to [employer] and swimming once weekly but only helps while in the pool, feels strain afterwards. 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 Takes meds as prescribed. Denies SI/HI/SH. Prior: Patient presents today for medication review and follow up. Reports recent 02/13/23-02/21/23 psychiatric crisis, was in [facility] inpatient, for first time inpatient, but reports having done virtual partial for psychiatric to depression, anxiety and PTSD. Reports good tolarance with Baclofen and notices not getting sharp pain anymore but continues to endorse widespread body pain mainly in her arms and legs which they describe as aching. Patient has not started physical therapy yet due to psychiatric inpatient stay and will reach out to our PT department to schedule first session. Denies any recent cough, cold, infection, fever or other significant changes in medical history since last office visit. PRIOR: Sravanthi Hoffman) is very pleasant 27 years old female who presents in my office with complains on pain all over the body. She reports her pain affects her shoulders bilateral arms bilateral hands her neck lower back bilateral thighs bilateral knees bilateral lower legs and bilateral feet. She reports that this pain started in 2018. She denies any inciting events. She reports her pain on average 6/10. She reports most significant pain in the area of the bilateral hands and bilateral forearms. She stated that this pain was related to overuse of the hands when she was in college studying arts and painting. She was under care of rubber calender helper and appropriate workup was made to rule out modal logical conditions and put diagnosis of fibromyalgia for this patient. She is suffering from narcolepsy and unable to sleep normally. She can take care of herself she can not function normally she can not do activities of daily living. She is working full-time. She tried Lyrica and gabapentin for her pain. Appropriate escalation seem to be done for this patient she reports 1800 of gabapentin maximal does with no improvement and no side effects. She admits Lyrica also did not help her pain, she does not remember if Lyrica gave her any significant pain improvement. In terms of tissue damage she reports her pain is hot burning, searing, tingling, stinging, dull, heavy, tiring, exhausting, spreadin g, piercing, tight, tearing. She never had any images of her spine. She never had formal physical therapy address to fibromyalgia. She had only occupational therapy for the arm and hand pain with minimal relief. She has 10s unit at home and she uses it with minimal relief. Her past medical history significant for headaches, fatigue anxiety and depression narcolepsy heart murmur shortness of breath and ovarian cyst. She denies any past surgical history. She denies smoking cigarettes she drinks once a week small amount of alcohol she drinks coffee and caffeinated beverages and she consumes cannabis products. [facility] Medical History Depression, major, severe recurrence Post traumatic stress disorder (PTSD) Review of Systems Const All systems reviewed & are unremarkable except as noted in HPI and below Physical Exam Vital Signs: Last Vital Signs Pulse 100 10/13/24 13:01 Resp 16 10/13/24 13:01 BP 141/85 H 10/13/24 13:01 Pulse Ox 99 10/13/24 13:01 Oxygen Delivery Method Room Air 10/13/24 13:01 BMI result Body Mass Index 50.0 General: awake, alert, oriented. Answers questions appropriately. Fully engaged in examination. Skin: warm, dry, intact HEENT: Normocephalic. Hearing intact. Cardiac: External chest normal in appearance. Respiratory: No cough, audible wheezing or stridor. Abdomen: without gross distension. MS: No obvious swelling or deformities. Neurological: Oriented to person, place, time and situation. Thought process intact. ambulates with a cane. Psychiatric: Appropriate mood and affect. Good judgment and insight. Assessment & Plan Assessment & Plan (1) Fibromyalgia: Code(s): M79.7 - Fibromyalgia Category: Medical (2) Chronic pain syndrome: Code(s): G89.4 - Chronic pain syndrome Category: Medical (3) Myofascial pain: Code(s): M79.18 - Myalgia, other site Category: Medical Plan Patient presented back to the office today for follow-up chronic pain Patient will taper off gabapentin as they do not feel it provides him any relief. Will decrease to 300 mg twice daily for one-week then 300 mg daily for one-week before stopping. If pain significantly worsens during tapering process patient may restart and continue at 3 times daily dosing and forego discon tinuation of this medication. New prescription for tizanidine 2 mg p.o. 3 times daily. Patient advised on cautions for use. May cause drowsiness, no driving while taking this medication. Follow up in 3 months, sooner if needed. Medications: New tizanidine 2 mg PO TID PRN 90 caps 3RF muscle spasticity Coding Level of Care Code Est Pt Level 3 (81685) Complex EM visit Add On G2211 Diagnoses Fibromyalgia M79.7 Chronic pain syndrome G89.4 Myofascial pain M79.18
--- OUTSIDE RECORDS SUMMARY | 2024-10-13 14:58 | XMS_ITS | Clinical Summary ---
Author Organization [facility] ity Address [address] [place] [address] Care Team Providers Care Water Operator Name Role Phone Unavailable Primary Care Provider Unavailabl e Encounters Date Type Department Care Team Description 08/31/2024 Telephone [facility] [address] [place] [address] Lisa Kumari NP from Last 3 Months Social History Tobacco Use Types Packs/Day Years Used Date Smoking Tobacco: Never Assessed Comments Unknown Sex and Gender Information Value Date Recorded Sex Assigned at Not on file Legal Sex Nonbinary 05/11/2024 11:40 AM EDT Gender Identity Not on file Sexual Orientation Not on file Plan of Treatment Health Maintenance Due Date Last Done Comments DTaP,Tdap,and Td Vaccines (1 - Tdap) 2013 Hepatitis B Vaccines (1 of 3 - 19+ 3-dose series) 2013 Cervical Cancer Screening: P ap Smear 2015 COVID-19 Vaccine ( - 2023-2 5 season) 2024 Influenza Vaccine (#1) 2024 Depression Screening 05/18/2024 HIV Screening 05/18/2024 Hepatitis C Screening 05/18/2024 Social Influencers of Health Screening 05/18/2024 HIB Vaccines Aged Out No longer eligi ble based on patient's age to complete this topic HPV Vaccines Aged Out No longer eligi ble based on patient's age to complete this topic Hepatitis A Vaccines Aged Out No long er eligible based on patient's age to complete this topic IPV Vaccines Aged Out No longer eligi ble based on patient's age to complete this topic MMR Vaccines Aged Out No longer eligi ble based on patient's age to complete this topic Meningococcal ACWY Vaccine Aged Out N o longer eligible based on patient's age to complete this topic Meningococcal B Vacine Aged Out No lo nger eligible based on patient's age to complete this topic Pneumococcal Vaccine: Pediat rics (0 to 5 Years) and At-Risk Patients (6 to 64 Years) Aged Out No longer eligible b ased on patient's age to complete this topic RSV Immunization Patients Un torin 20 months Aged Out No longer eligible b ased on patient's age to complete this topic Varicella Vaccines Aged Out No longer eligible based on patient's age to complete this topic
== END 2024-10-13 13:16 | disposition home or self-care (01) ==
LOC: HO.PMC 12:55
PROVIDERS: PCP Nurse Practitioner Adult Health; Visit Provider Registered Nurse Emergency
DX: M79.7 Fibromyalgia (principal); G89.4 Chronic pain syndrome; M79.18 Myalgia, other site
CPT/HCPCS: 99213; G2211

== ENCOUNTER → 2024-10-13 12:54 | Outpatient (BNVA) | payer MEDICAID, SELFPAY | PROVIDERS: PCP Nurse Practitioner Adult Health; Visit Provider Registered Nurse Emergency | DX: M79.7 Fibromyalgia (principal); M79.18 Myalgia, other site; G89.4 Chronic pain syndrome | CPT/HCPCS: 99212 ==

== ENCOUNTER 2025-01-21 12:46 | Outpatient (AMB) | payer MEDICAID, SELFPAY ==
--- OUTSIDE RECORDS SUMMARY | 2025-01-21 12:49 | XMS_ITS | Clinical Summary ---
Author Organization [facility] ity Address [address] [place] [address] Care Team Providers Care Sustainable Systems Analyst Name Role Phone Unavailable Primary Care Provider Unavailabl e Encounters Date Type Department Care Team Description 10/26/2024 Telephone [facility] [address] [place] [address] Lisa Kumari NP Referral (No response from primary care office it patient has been seen by Cardiology or if tilt table was scheduled. aek) from Last 3 Months Social History Tobacco [...] Vaccine ( - 2023-2 5 season) 2024 Depression Screening 05/18/2024 HIV Screening 05/18/2024 Hepatitis C Screening 05/18/2024 Social Influencers of Health Screening 05/18/2024 Influenza Vaccine (Season Ended) 2025 HIB Vaccines Aged Out No longer eligi [...] age to complete this topic Meningococcal B Vaccine Aged Out No l onger eligible based on patient's age to complete [...]
[2025-01-21 12:51] VITALS: BP 143/84; PULSE 118; RESP 16; O2SAT 99; BMI 47.8
--- NOTE | 2025-01-21 12:51 | MHC.OFFVIS ---
Vital Signs 01/21/25 12:51 Height 5 ft 6 in Weight 296 lb BMI 47.8 BP 143/84 H Blood Pressure Location Rt brachial Position Sitting Respiration 16 Pulse 118 H Pulse Source Pulse Oximeter Pulse Oximetry (%) 99 Oxygen Delivery Method Room Air Intake Visit Reasons: 3 Month Follow Up Securities Teller Required: No Accompanied by: Self / Same As Patient Allergies lamotrigine (From Lamictal) Allergy (Mild, Verified 01/21/25 12:54) rash HPI Comments Details: The patient is a 29-year-old presenting with chronic pain management. The patient reports a history of chronic joint dislocations, which occur frequently but spontaneously reduce. She has discontinued gabapentin and is currently on a low dose of tizanidine, which has not been effective in managing her symptoms. The patient experiences chronic fatigue, which they describes as a persistent issue. They report no additional side effects from her current medication regimen, attributing her fatigue to her baseline condition. The patient has transitioned from smoking cannabis to using edibles, which she finds beneficial for pain management. - Reports chronic pain exacerbated by weather changes, leading to increased swelling and discomfort. - Pain management includes the use of cannabis edibles, which the patient finds beneficial. - Affect: Reports mood fluctuations associated with pain exacerbations. - Analgesia: Currently using tizanidine and cannabis edibles for pain management. - Adverse Effects: Denies additional side effects from current medications. - Activities of Daily Living: Reports difficulty with daily activities during pain exacerbations. - Aberrant Drug Related Behaviors: None reported. [facility] Medical History Depression, major, severe recurrence Post traumatic stress disorder (PTSD) Review of Systems Const Details: - Musculoskeletal: Reports chronic joint dislocations and pain exacerbated by weather changes. - Neurological: Reports chronic fatigue, denies dizziness or weakness beyond baseline. Physical Exam Vital Signs: Last Vital Signs Pulse 118 H 01/21/25 12:51 Resp 16 01/21/25 12:51 BP 143/84 H 01/21/25 12:51 Pulse Ox 99 01/21/25 12:51 Oxygen Delivery Method Room Air 01/21/25 12:51 BMI result Body Mass Index 47.8 General: awake, alert, oriented. Answers questions appropriately. Fully engaged in examination. Skin: warm, dry, intact HEENT: Normocephalic. Hearing intact. Cardiac: External chest normal in appearance. Respiratory: No cough, audible wheezing or stridor. Abdomen: without gross distension. MS: No obvious swelling or deformities. Neurological: Oriented to person, place, time and situation. Thought process intact. ambulates with a cane. Psychiatric: Appropriate mood and affect. Good judgment and insight. Assessment & Plan Assessment & Plan (1) Fibromyalgia: Code(s): M79.7 - Fibromyalgia Category: Medical (2) Chronic pain syndrome: Code(s): G89.4 - Chronic pain syndrome Category: Medical (3) Myofascial pain: Code(s): M79.18 - Myalgia, other site Category: Medical Plan The patient has discontinued gabapentin and is currently on a low dose of tizanidine, which has not been effective in managing her symptoms. The plan is to increase the tizanidine dosage to 4 mg three times a day to assess for improved pain control. The patient is advised to monitor for any side effects with the increased dosage and to adjust the timing of the dose if necessary, particularly if side effects occur at higher doses. She is encouraged to contact the office if the increased dosage does not provide adequate relief, allowing for further adjustments before the next scheduled visit. Patient was informed and verbally consented to the use of an ambient scribe for clinic note documentation during this visit. Medications: Changed From tizanidine 2 mg PO TID 270 caps 2RF for muscle spasm To tizanidine May cause drowsiness. 4 mg PO TID 90 caps 3RF for muscle spasm Patient Instructions: - Increase tizanidine to 4 mg three times daily. - Monitor for side effects and adjust timing if necessary. - Contact the office if pain relief is inadequate or if side effects occur. Coding Level of Care Code Est Pt Level 3 (19410) Complex EM visit Add On G2211 Diagnoses Fibromyalgia M79.7 Chronic pain syndrome G89.4 Myofascial pain M79.18
== END 2025-01-21 13:23 | disposition home or self-care (01) ==
LOC: HO.PMC 12:47
PROVIDERS: PCP Nurse Practitioner Adult Health; Visit Provider Registered Nurse Emergency
DX: M79.7 Fibromyalgia (principal); G89.4 Chronic pain syndrome; M79.18 Myalgia, other site
CPT/HCPCS: 99213; G2211

== ENCOUNTER → 2025-01-21 12:46 | Outpatient (BNVA) | payer MEDICAID, SELFPAY | PROVIDERS: PCP Nurse Practitioner Adult Health; Visit Provider Registered Nurse Emergency | DX: M79.18 Myalgia, other site (principal); G89.4 Chronic pain syndrome | CPT/HCPCS: 99212 ==

== ENCOUNTER 2025-04-22 13:50 | Outpatient (AMB) | payer MEDICAID, SELFPAY ==
--- NOTE | 2025-04-22 13:56 | A.OFFVIS_ITS ---
Vital Signs 04/22/25 13:58 Height 5 ft 6 in Weight 299 lb BMI 48.3 BP 138/86 Blood Pressure Location Rt radial Position Sitting Respiration 16 Pulse 103 H Pulse Source Pulse Oximeter Pulse Oximetry (%) 97 Oxygen Delivery Method Room Air Intake Visit Reasons: 3 Month Follow Up Marketing Reporting Analyst Required: No Accompanied by: Self / Same As Patient Allergies lamotrigine (From Lamictal) Allergy (Mild, Verified 04/22/25 13:58) rash HPI Comments Details: The patient presents with diffuse chronic pain. The pain is described as widespread and persistent, with no significant improvement over time despite previous treatments. Gabapentin was previously used but discontinued due to lack of efficacy, and Lyrica was also tried without benefit. The patient is currently taking desvenlafaxine and amitriptyline, therefore unable to trial savella due to increased risk of serotonin syndrome. The patient reports that the pain is migratory, with the worst areas currently being the lower back and lower legs. Physical therapy has been attempted in the past but not specifically for the lower back. The patient expresses difficulty with physical therapy due to the intensity of exercises prescribed. They are willing to try again providing the physical therapy office can accommodate their physical activity level. Fibromyalgia is suspected, and the patient has been advised on the benefits of probiotics for gut health, which may help with inflammation and anxiety associated with chronic pain. The patient is also managing irritable bowel syndrome with amitriptyline, prescribed by a web development consultant. There is a concern about adjusting the dose of amitriptyline due to its dual role in managing IBS and potential side effects. - Onset: Persistent and widespread pain with no significant improvement over time. - Quality: Migratory pain, currently worst in the lower back and lower legs. - Exacerbating factors: Difficulty with physical therapy due to intensity. - Relieving factors: None identified in the conversation. - Affect: Pain impacts mood and is associated with anxiety. - Analgesia: Current medications include venlafaxine and amitriptyline; gabapentin and Lyrica were ineffective. - Adverse Effects: Concerns about serotonin syndrome with addition of savella to current medication regimen. - Activities of Daily Living: Pain interferes with physical therapy and daily activities. - Aberrant Drug Related Behaviors: None reported. [facility] Medical History Depression, major, severe recurrence Post traumatic stress disorder (PTSD) Review of Systems Const Details: - Musculoskeletal: Reports widespread pain, currently worst in lower back and lower legs. - Gastrointestinal: Reports irritable bowel syndrome. - Psychiatric: Reports anxiety associated with chronic pain. Physical Exam Exam Exam: General: awake, alert, oriented. Answers questions appropriately. Fully engaged in examination. Skin: warm, dry, intact HEENT: Normocephalic. Hearing intact. Cardiac: External chest normal in appearance. Respiratory: No cough, audible wheezing or stridor. Abdomen: without gross distension. MS: No obvious swelling or deformities. Neurological: Oriented to person, place, time and situation. Thought process intact. ambulates with a cane. Psychiatric: Appropriate mood and affect. Good judgment and insight. Vital Signs: Last Vital Signs Pulse 103 H 04/22/25 13:58 Resp 16 04/22/25 13:58 BP 138/86 04/22/25 13:58 Pulse Ox 97 04/22/25 13:58 Oxygen Delivery Method Room Air 04/22/25 13:58 BMI result Body Mass Index 48.3 Assessment & Plan Assessment & Plan (1) Fibromyalgia: Code(s): M79.7 - Fibromyalgia Category: Medical (2) Chronic pain syndrome: Code(s): G89.4 - Chronic pain syndrome Category: Medical (3) Myofascial pain: Code(s): M79.18 - Myalgia, other site Category: Medical Plan The plan includes discontinuing tizanidine due to lack of efficacy and initiating methocarbamol as an alternative muscle relaxant. The patient is advised to gradually taper off tizanidine to avoid withdrawal effects. Physical therapy is recommended, with a focus on finding a suitable therapist who can tailor exercises to the patient's capabilities. The patient is encouraged to research and select a physical therapy provider, with the option of receiving a referral for a local facility. The patient is advised to consult with their web development consultant regarding the potential adjustment of amitriptyline dosage, considering its dual role in managing IBS and pain. The patient is also encouraged to explore cognitive behavioral therapy for chronic pain management. Patient was informed and verbally consented to the use of an ambient scribe for clinic note documentation during this visit. Medications: New methocarbamol Discontinue use of Tizanidine prior to starting this medication No driving while taking this medication. Do no take with alcohol or other PLANT CUSTODIAN Depressants 500 mg PO TID PRN 90 tabs 1RF muscle spasm Discontinued tizanidine May cause drowsiness. Discontinued Reason: Doctor's Order 4 mg PO TID 90 caps 3RF for muscle spasm Patient Instructions: - Gradually reduce tizanidine dosage as instructed before starting methocarbamol. - Research and select a suitable physical therapy provider; contact me for a referral if needed. - Consult with your web development consultant about adjusting the amitriptyline dosage. - Consider exploring cognitive behavioral therapy for chronic pain management. Coding Level of Care Code Est Pt Level 3 (73266) Complex EM visit Add On G2211 Diagnoses Fibromyalgia M79.7 Chronic pain syndrome G89.4 Myofascial pain M79.18
[2025-04-22 13:58] VITALS: BP 138/86; PULSE 103; RESP 16; O2SAT 97; BMI 48.3
--- OUTSIDE RECORDS SUMMARY | 2025-04-22 13:59 | XMS_ITS | Clinical Summary ---
Author Organization [facility] ity Address [address] [place] [address] Care Team Providers Care Master Black Belt Name Role Phone Unavailable Primary Care Provider Unavailabl e Social History Tobacco Use Types Packs/Day Years [...] Cervical Cancer Screening: P ap Smear 2015 HIV Screening 05/18/2024 Hepatitis C Screening 05/18/2024 Social Influencers of Health Screening 05/18/2024 Depression Screening 08/04/2024 COVID-19 Vaccine (2023-2 5 season) 2025 Influenza Vaccine (#1) 2025 HIB Vaccines Aged Out No longer [...] 5 Years) and At-Risk Patients (6 to 49 Years) Aged Out No longer eligible b ased on patient's age to complete this topic RSV Immunization Patients Un torin 20 months Aged Out No longer eligible b ased on patient's age to complete this topic Varicella Vaccines Aged Out No longer eligible based on patient's age to complete this topic
--- OUTSIDE RECORDS SUMMARY | 2025-04-22 13:59 | XMS_ITS | Encounter Summary ---
Author Organization [facility] Address [address] [place] [address] Phone Care Team Providers Care Artist'S Representative Name Role Phone Reji Zeng MD Unavailable [phone] Swathi Giordano CNP Primary Care Provider [phone] Lexus Hoyt TAX FORM PREPARER Unavailable Derrick Medina MD Unavailable [phone] Marimar Mustafa PA Unavailable [phone] Jennifer Mauro MD Unavailable Encounter Details Date Type Department Care Team (Late st Contact Info) Description 01/19/2024 Procedure Pass [facility], Ct Scan - [address] [address] Social History Tobacco Use Types Packs/Day Years Used Date Smoking Tobacco: Never Smokeless Tobacco: Never Alcohol Use Standard Drinks/Week Comments Not Currently 0 (1 standard drink = 0.6 oz pur e alcohol) (2022) Child or Family Care Answer Date Record ed Do you have problems with on e of the following making it difficult for you to work, study, or receive health care? No 11/19/2022 Education Answer Date Recorded Are you interested in help w ith more adult education (for example, completing high school, GED, job training, learning the [place] language, technical skills, or developing parenting skills)? No 11/19/2022 Food Answer Date Recorded Within the past 6 months we worried whether our food would run out before we got money to buy more. Never True 11/19/2022 Within the past 6 months the food we bought just didn't last and we didn't have enough money to get more. Never True Residential Stability Answer Date Recor ded What is your housing situation today? I have caesar sing 11/19/2022 How many times have you move d in the past 12 months? Zero (I did not move) 11/19/2022 Paying for Meds Answer Date Recorded Do you have trouble paying for medicines? No 11/19/2022 Paying Utility Bills Answer Date Record ed Do you have trouble paying your heating or elect ricity bill? No 11/19/2022 Transportation Answer Date Recorded Has the lack of transportati on kept you from medical appointments or from getting medications? No 11/19/2022 Unemployment Answer Date Recorded Are you currently unemployed or working on a part-time or temporary basis, and looking for work? No 11/19/2022 Digital Access Answer Date Recorded No 12/31/2022 No 12/31/2022 Reliable internet access at home? Not on file 12/31/2022 Device with a working camera? 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 Not on file Not on file documented as of this encounter Plan of Treatment Upcoming Encounters Date Type Department Care Team (Late st Contact Info) Description 05/03/2025 1:15 PM EDT Office Visit [facility] [address] [place] [address] [address]rd Floor, [address] [place] [address] Derrick Medina MD [address] [place] [address], [address] [address] 04/11/2026 1:00 PM EDT Office Visit [facility] [address] [place] [address] Swathi Giordano CNP [address] [place] [address], [address] [place] [address] [email or web address] documented as of this encounter Visit Diagnoses Not on filedocumented in this encounter Additional Health Concerns Assessment Noted Time PHQ-9 Depression Total Score: 26 024 3:20 PM EDT PHQ-2 Depression Total Score: 6 11/20/19 24 3:20 PM EDT documented as of this encounter Care Teams Artist'S Representative Relationship Specialty Start Date End Date Swathi Giordano CNP [address] [place] [address], [address] [address] PCP - General Family Medicine 09/13/19 Reji Zeng MD [address] [place] [address], [address] [place] [address] [email or web address] Insurance Assigned Provider Internal Medicine 12/08/18 Lexus Hoyt CNS [address] [place] [address] Psychiatry 06/07/20 Derrick Medina MD [address] [place] [address], [address] [address] [email or web address] Sleep Medicine 02/24/24 Marimar Mustafa PA [address] [place] [address] Physician Salesperson Floor Coverings 03/21/25 Jennifer Mauro MD [address] [place] [address] [email or web address] Obstetrics and Gynecology 03/21/25 documented as of this encounter Additional Source Comments The information contained in this document represents components of the legal health record. It is not the complete legal health record.[facility]
--- OUTSIDE RECORDS SUMMARY | 2025-04-22 13:59 | XMS_ITS | Encounter Summary ---
Author Organization [facility] Address [address] [place] [address] Phone Care Team Providers Care Painting Contractor Name Role Phone Reji Zeng MD Unavailable [phone] Swathi Giordano CNP Primary Care Provider [phone] Lexus Hoyt BARTENDER HELPER Unavailable Derrick Medina MD Unavailable [phone] Marimar Mustafa PA Unavailable Jennifer Mauro MD Unavailable Encounter Details Date Type Department Care Team (Late st Contact Info) Description 08/20/2022 Procedure Pass [facility] Admitting Dept Virtual Department [address] [place] [address] Social History Tobacco Use Types Packs/Day Years Used Date Smoking Tobacco: Never Smokeless Tobacco: Never Alcohol Use Standard Drinks/Week Comments Yes 1 (1 standard drink = 0.6 oz pur e alcohol) occasional Child or Family Care Answer Date Record ed Do you have problems with on e of the following making it difficult for you to work, study, or receive health care? No 08/18/2021 Education Answer Date Recorded Are you interested in help w ith more adult education (for example, completing high school, GED, job training, learning the [place]ic language, technical skills, or developing parenting skills)? No 08/18/2021 Food Answer Date Recorded Within the past 6 months we worried whether our food would run out before we got money to buy more. Sometimes True 022 Within the past 6 months the food we bought just didn't last and we didn't have enough money to get more. Never True 08/04 Paying for Meds Answer Date Recorded Do you have trouble paying for medicines? No 08/18/2021 Paying Utility Bills Answer Date Record ed Do you have trouble paying your heating or elect ricity bill? No 08/18/2021 Transportation Answer Date Recorded Has the lack of transportati on kept you from medical appointments or from getting medications? No 08/18/2021 Comments No Sex and Gender Information Value [...] Description 05/03/2025 1:15 PM EDT Office Visit [facility] [address] [place] [address] 3rd Floor, [address] [place] [address] Derrick Medina MD [address] [place] [address], [address] [place] [address] 04/11/2026 1:00 PM EDT Office Visit [facility] [address] [place] [address] [place] [address] Swathi Giordano CNP [address] [facility], [address] [place] [address] [email or web address] documented as of this encounter Visit Diagnoses Not on filedocumented in this encounter Additional Health Concerns Assessment Noted Time PHQ-9 Depression Total Score: 26 022 10:30 AM EST PHQ-2 Depression Total Score: 6 08/18/19 10:30 AM EST documented as of this encounter Care Teams Painting Contractor Relationship Specialty Start Date End Date Shiv GiordanocharlyDEMIAN [address] [place] [address], [address] [place] [address] PCP - General Family Medicine 09/13/19 Reji Zeng MD [address] [place] [address], [address] [place] [address] [email or web address] Insurance Assigned Provider Internal Medicine 12/08/18 Lexus Hoyt CNS [address] [place] [address] Psychiatry 06/07/20 Derrick Medina MD [address] [place] [address], [address] [place] [address] [email or web address] Sleep Medicine 02/24/24 Marimar Mustafa PA [address] [place] [address] Physician Software Sales 03/21/25 Jennifer Mauro MD [address] [place] [address], [address] [place] [address] [email or web address] Obstetrics and Gynecology 03/21/25 documented as of this encounter Additional Source Comments The information contained in this document represents components of the legal health record. It is not the complete legal health record.[facility]
--- OUTSIDE RECORDS SUMMARY | 2025-04-22 13:59 | XMS_ITS | Encounter Summary ---
Author Organization [facility] Address [address] [place] [address] Phone Care Team Providers Care Electronic Controls Repairer Supervisor Name Role Phone Reji Zeng MD Unavailable [phone] Swathi Giordano CNP Primary Care Provider [phone] Lexus Hoyt PAINTER AND BODY MECHANIC APPRENTICE Unavailable Derrick Medina MD Unavailable [phone] Marimar Mustafa PA Unavailable Jennifer Mauro MD Unavailable Encounter Details Date Type Department Care Team (Latest Contact Info) Description 12/27/2021 Transcribe Orders [facility] Laboratory [address] [id number] Jennifer Holland NP [address] [place], [place] [id number] Change in bowel habits (Primary Dx); Diarrhea, unspecified type Social History Tobacco Use Types Packs/Day Years [...] high school, GED, job training, learning the Irish language, technical skills, or developing parenting skills)? [...] Description 05/03/2025 1:15 PM EDT Office Visit [facility] [address] [place] [address] [address]rd Floor, [address] [place] [address] Derrick Medina MD [address] [place] [address], [address] [place] [address] 04/11/2026 1:00 PM EDT Office Visit [facility] [address] [place] [address] [place] [address] Swathi Giordano CNP [address] [place] [address], [address] [place] [address] [email or web address] documented as of this encounter Results * Comprehensive metabolic panel (12/27/2021 9:54 AM EDT) SODIUM 140 133 - 146 mmol/L [facility] POTASSIUM 4.0 3.3 - 5.1 mmol/L [facility] CHLORIDE 105 96 - 108 mmol/L [facility] CO2 27 21 - 35 mmol/L [facility] BUN 14 6 - 19 mg/dL [facility] CREATININE 0.60 0.5 - 1.5 mg/dL [facility] GLUCOSE 95 70 - 99 mg/dL [facility] ALBUMIN 4.4 3.9 - 4.8 g/dL [facility] TOTAL PROTEIN 7.3 6.5 - 8.0 g/dL [facility] CALCIUM 8.7 8.4 - 10.3 mg/dL [facility] ALKALINE PHOSPHATASE 109 39 - 117 U/L [facility] TOTAL BILIRUBIN 0.4 0.0 - 1.2 mg/dL [facility] AST 16 0 - 37 U/L [facility] ALT 12 0 - 40 U/L [facility] GLOBULIN 2.9 1 - 4.8 g/dL [facility] EGFR >120 >59 mL/min/1.7 3m2 [facility] Comment:Estimated glomerular filtration rate calculated using the CKD-EPI refit equation. ANION GAP 12 10 - 20 mmol/L [facility] Blood 12/27/2021 9:54 AM EDT 12/27/2021 10:02 AM EDT Jennifer Holland NP LAB BLOOD ORDERABLES Maryana l Result [address] [address] * Immunoglobulin A (12/27/2021 9:54 AM EDT) IgA 223 70 - 400 mg/dL [facility] Blood 12/27/2021 9:54 AM EDT 12/27/2021 10:02 AM EDT Jennifer Ana Willemain WATCH TRAIN ASSEMBLER LAB BLOOD ORDERABLES Maryana l Result [facility] [address] [place] [address] * Tissue transglutaminase IgA (12/27/2021 9:54 AM EDT) TTG IGA ANTIBODY <1.2 <4.0 (Negative) U/mL [facility] Blood 12/27/2021 9:54 AM EDT 12/27/2021 10:02 AM EDT us Jennifer Ana Holland WATCH TRAIN ASSEMBLER LAB BLOOD ORDERABLES Maryana l Result [facility] [address] [place] [address] documented in this encounter Visit Diagnoses Diagnosis Change in bowel habits- Primary Other symptoms involving digestive system Diarrhea, unspecified type documented in this encounter Additional Health Concerns Assessment Noted Time PHQ-9 Depression Total Score: 26 022 10:30 AM EST PHQ-2 Depression Total Score: 6 08/18/19 22 10:30 AM EST documented as of this encounter Care Teams Electronic Controls Repairer Supervisor Relationship Specialty Start Date End Date Swathi Giordano CNP [address] [place] [address], [address] [address] PCP - General Family Medicine 09/13/19 Reji Zeng MD [address] [place] [address], [address] [place] [address] Insurance Assigned Provider Internal Medicine 12/08/18 Lexus Hoyt CNS [address] [place] [address] Psychiatry 06/07/20 Derrick Medina MD [address] [place] [address], [facility] [address] [place] [address] [email or web address] Sleep Medicine 02/24/24 Marimar Mustafa PA [address] [place] [address] Physician Pack Room Operator 03/21/25 Jennifer Mauro MD [address] [place] [address], [address] [place] [address] [email or web address] Obstetrics and Gynecology 03/21/25 documented as of this encounter Additional Source Comments The information contained in this document represents components of the legal health record. It is not the complete legal health record.[facility]
--- OUTSIDE RECORDS SUMMARY | 2025-04-22 13:59 | XMS_ITS | Clinical Summary ---
Author Organization [facility] Address [address] [place] [id number] Phone Care Team Providers Care Recruitment Intern Name Role Phone Reji Zeng MD Unavailable [phone] Shelia Sherwood CNP Primary Care Provider [phone] Lexus Hoyt COLLEGE SPECIALIST Unavailable Derrick Medina MD Unavailable [phone] Marimar Mustafa PA Unavailable [phone] Jennifer Mauro MD Unavailable Allergies Active Allergy Reactions Criticality Noted Date Comments Duloxetine Diarrhea 03/23/2021 Lactose 04/23/2019 Lamotrigine Rash Low 12/08/2018 Face rash Escitalopram Oxalate 12/08/2018 Loss of efficacy over time [place] Carbonate Fatigue Low 12/08/2018 Ineffective Metformin Diarrhea 06/07/2020 Medications methylphenidate HCl (RITALIN) 10 MG tablet Take 10 mg by mouth 2 (two) times a day (once in the morning and once in the afternoon). Active aspirin-acetami nophen-caffeine (EXCEDRIN MIGRAINE) 250-250-65 mg per tablet Take 1 tablet by mouth every 6 (six) hours as needed for pain (specific location in comments). Active desvenlafaxine succinate (PRISTIQ) 100 MG 24 hr tablet Take 100 mg by mouth every morning. 100mg tab with a 50 mg tab daily 3 Active LORazepam (ATIVAN) 0.5 MG tablet TAKE 1 TO 2 TABLETS BY MOUTH DAILY NEEDED 3 Active amitriptyline (ELAVIL) 50 MG tablet Take 50 mg by mouth daily. 3 Active methylphenidate (CONCERTA) 27 MG ER tablet Take 27 mg by mouth every morning. Active ARIPiprazole (ABILIFY) 15 MG tablet Take 15 mg by mouth daily. Active triamcinolone acetonide 0.1 % ointmentIndicat ions:Vulvar dermatitis Apply topically 2 (two) times a day. 80 g 3 4 Active esketamine (SPRAVATO) 84 mg (28 mg x 3) nasal spray 84 mg by Nasal route every 14 (fourteen) days. Active desvenlafaxine succinate (PRISTIQ) 50 MG 24 hr tablet Take 50 mg by mouth daily. To be taken daily with 100mg tablet Active ondansetron (ZOFRAN) 4 MG tablet ONE TABLET ORALLY ONCE A DAY NEEDED FOR NAUSEA 30 DAYS 5 Active solriamfetol (SUNOSI) 150 mg tabletIndicatio ns:Medication refill Take 1 tablet (150 mg total) by mouth daily. 90 tablet 3 5 Active psyllium (METAMUCIL) 0.4 gram capsule Take 0.4 g by mouth daily. Active omeprazole (PRILOSEC) 40 MG capsule Take 40 mg by mouth daily. 5 Active famotidine (PEPCID) 20 MG tablet Take 20 mg by mouth nightly at bedtime as needed. Active tiZANidine (ZANAFLEX) 4 MG capsule Take 4 mg by mouth. Active spironolactone (ALDACTONE) 50 MG tablet Take 1 tablet (50 mg total) by mouth daily. 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 Check labs today. This seems to occur during periods of increased pain and Mina had two brief jerks during the visit (with visible jerking of the shoulders). Obstructive sleep apnea on CPAP 04/27/2024 Assessment & Plan (03/21/2025 3:20 PM EDT): Managed by Dr. Medina. Continue nightly use of CPAP. Assessment & Plan (04/27/2024 2:57 PM EDT): Continue nightly CPAP. Ingrowing nail, left great toe 03/30/2024 Assessment & Plan (04/27/2024 2:54 PM EDT): There is overgrowth of tissue to the left medial nail but no erythema or purulent drainage to suggest active infection. Start Epsom salt soaks twice daily. Assessment & Plan (03/30/2024 12:12 PM EDT): Treat with 5 days of Bactrim. Epsom salt soaks discussed. Wear shoes in the house to prevent recurrent trauma. Referral is placed to podiatry. We discussed symptoms that would warrant re-evaluation including increasing pain, red streaking, fever or chills. Mina agrees. ASCUS of cervix with negative high risk HPV 02/02 Assessment & Plan (03/21/2025 3:20 PM EDT): Pap smear due 2025 per ASCCP guidelines. Encounter for general adult medical examination with abnormal findings 02/24/2024 Assessment & Plan (03/21/2025 3:20 PM EDT): Immunizations are up to date. Tdap 2028, sooner with injury. Warning signs of breast cancer and breast self-awareness reviewed. Continue regular DIETETIC TECH care. Labs as below. Orders: CBC; Future Comprehensive metabolic panel; Future Hemoglobin A1c; Future Assessment & Plan (02/24/2024 3:51 PM EDT): Immunizations are up to date. Covid vaccine and flu shot seasonally. Schedule annual DIETETIC TECH care. We reviewed Mina's pap smear report from last year and they verbalize understanding of recommendations. Encouraged regular dental hygiene. Atypical chest pain 01/20/2024 Assessment & Plan (01/20/2024 3:35 PM EDT): Symptoms improved yesterday and are mostly resolved today. They are experiencing fibromyalgia flare and this might have been more severe preceding symptoms. Monitor for now. Work up in the ER was very reassuring. Postural dizziness 11/21/2023 Assessment & Plan (11/21/2023 9:55 AM EDT): Pt does not quite meet the definition for postural orthostatic tachycardia based on our in office testing. However, I think they would benefit from a tilt-table test and they have been referred to [facility] for this. Long COVID 11/21/2023 Assessment & Plan (02/24/2024 3:53 PM EDT): We reviewed the referrals from ID. Mina will work on making those appointments. Mina remains out of work due to fatigue. BP improved on my check. We discussed that Mina should sit in a supported chair and wait for 5 minutes before checking BP at home. Call with elevated readings. Assessment & Plan (01/20/2024 3:34 PM EDT): We discussed the [facility] seems to have left a message twice. Mina will check with Lisa to see if she wanted Mina to start there now or wait until after PT starts. PT will begin tomorrow. They also discussed tilt table testing and EDS work up. Mina will coordinate visits with external providers as appropriate. Assessment & Plan (11/21/2023 9:56 AM EDT): Discussed that long COVID is an evolving disease process and that we don't understand the underlying pathophysiology completely as of yet. This means that we are treating lasting symptoms and conditions which may be exacerbated by long-COVID. While any disability paperwork would likely be filled out by PCP, I would be happy to provide any supplemental letters or documentation. As more information becomes available, we will contact patients to return to ID clinic. Current recommendation is to follow-up with ID as needed. 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 I did encourage Mina to schedule physical therapy at [facility] with the goal of having an HEP and doing some amount of daily activity to improve energy and stamia. Mina agrees to call today. Assessment & Plan (04/16/2023 5:15 PM EDT): Paperwork reviewed with patient in detail. It is completed on date of service. I have asked Mina to reach out to human resources today to discuss new leave end date of 05/19/2023. I have also recommended that Mina discuss their symptoms with their therapist and prescriber. We also discussed post-Covid clinics locally and in [place]. Assessment & Plan (03/26/2023 3:00 PM EDT): Recent Covid-19 infection. We discussed that post-viral fatigue is not uncommon and can last 1-3 months post illness. At this tme, I would not diagnose Mina with prolonged post-Covid illness. I recommended adequate sleep, nutrition, and water intake. We discussed that Mina may have a longer period of time to recovery given underlying health conditions and other medications. I am amenable to completing [facility] paperwork. We decided on leave until 04/21 and Mina will have paperwork sent. Mina will send me a message with the start date of leave. We have scheduled a follow up TM call on 04/16 at 1:30 PM. If symptoms worsen over the coming weeks, check labs before that time. No symptoms suggestive of more worrisome process. Continue current medications, follow up with specialists as scheduled. Malaise and fatigue 03/26/2023 Assessment & Plan (11/04/2023 2:50 PM EDT): Persistent fatigue and brain fog since Covid infection 03/2023 in the setting of preceding anxiety, depression, and fibromyalgia. I recommended that Mina consult with COIN MACHINE SERVICER REPAIRER [facility] regarding symptoms and potential treatment regimen. I recommended that Mina schedule follow up visits with [facility] pain management and schedule HST through sleep medicine. They are amenable to this plan. Atopic dermatitis 01/03/2023 Vulvar rash 11/29/2022 Assessment & Plan (02/24/2024 3:54 PM EDT): Improved with topical steroid through DIETETIC TECH. Keep the area as clean and dry as able. Assessment & Plan (02/11/2023 2:48 PM EDT): Patient's rash improved significantly with topical steroids Visually rash completely resolved Patient reports occasional itching Has been using clobetasol twice weekly Plan to transition patient to topical triamcinolone for maintenance Patient plans evaluation with dermatology, recommended discussing allergy testing with PCP Return to office as needed Assessment & Plan (01/03/2023 3:26 PM EDT): Vulvar rash significantly improved in appearance after course of oral steroids Patient continues to report itching symptoms Reviewed results of vulvar biopsy with patient, findings consistent with contact dermatitis Plan course of topical steroids, rx for clobetasol sent to pharmacy Encouraged review of soaps, lotions, detergents, perfumes, clothing materials Patient referred to dermatology Follow up in 4 weeks or sooner as indicated Assessment & Plan (11/29/2022 10:24 PM EDT): Vulvar rash not improved with course of nystatin No evidence of superimposed cellulitis Vulvar biopsy done Patient reports irritation with application of topical medication Plan course of oral steroids, will consider trial of topical steroids once excoriations healed Follow up in 4 weeks or sooner as indicated Irritable bowel syndrome with diarrhea Assessment & Plan (03/21/2025 3:20 PM EDT): Managed by [facility]. On TCA. Trying to wean off inhaled THC. Support offered. Assessment & Plan (02/24/2024 3:52 PM EDT): Symptoms are a bit improved with the amitriptyline though psyllium does not seem to have improved stool. F/up with GI as planned. IUD (intrauterine device) in place 11/19/2022 Assessment & Plan (03/21/2025 3:20 PM EDT): Mirena placed 2022. Narcolepsy and cataplexy 11/19/2022 Assessment & Plan (03/21/2025 3:20 PM EDT): Continue to avoid napping as able. Taking Sunosi and hoping that new medication will be approved. Assessment & Plan (04/27/2024 2:57 PM EDT): Try to increase dose of modafinil as prescribed by sleep medicine. Assessment & Plan (02/24/2024 3:53 PM EDT): We reviewed PSG during the visit. Conitnue modafinil and f/up with Dr. Medina next week as planned. Assessment & Plan (11/21/2023 9:50 AM EDT): Likely a contributing factor to ongoing fatigue. Continue regular follow-up as recommended by sleep medicine. Migraine without aura and wi thout status migrainosus, not intractable 11/19/2022 Fibromyalgia 05/27/2022 Overview (05/27/2022): Carries dx of FM with hx of widespread pain, mood disorder and poor sleep Assessment & Plan (03/21/2025 3:20 PM EDT): Under the care of [facility] pain management. Assessment & Plan (10/15/2024 4:06 PM EDT): I sent a prescription for a rollator. I encouraged Imna to use cane when able in order to maintain mobility and strength but I think that having a more dependable option especially for walking is appropriate. I provided a copy of the order and if it needs to be faxed to a specific medical supply store Mina will let me know. Orders: Rollator with seat Assessment & Plan (04/27/2024 2:54 PM EDT): Referred back to [facility] pain management to discuss options for pain management. Assessment & Plan (02/24/2024 3:51 PM EDT): Return to pain management at [facility]. Handicap placard paperwork completed today, copy sent to patient online. Gait is stable with use of cane. Assessment & Plan (11/21/2023 9:52 AM EDT): Pt reports increased physical discomfort from their underlying fibromyalgia since they had COVID19. This has lead to physical deconditioning as well as worsening anxiety and depression. Referred to Physical Therapy to help with physical discomfort as well as provide some exercises so they do not lose their current mobility. Discussed that acupuncture can also be helpful for symptom management. Assessment & Plan (11/04/2023 2:52 PM EDT): Mina reports no measurable from Baclofen, gabapentin, and other medications. They use amitriptyline 25 mg po qhs through psychiatry. Unfortunately fibromyalgia pain and frequency of flares has increased. Return to pain management and/or rheumatology. Assessment & Plan (05/27/2022 9:54 AM EDT): Carries dx of FM with hx of widespread pain, mood disorder and poor sleep In past failed tx with Gabapentin Currently on lyrica 75 mg BID.Tolerating med but has not noticed any improvement in symptom -increase dose to 150 mg BID -recommend generalized strengthening program. Pt reports feeling of subluxations, Pt will look into PT hours and call back if she wants referral sent -encouraged daily exercise such as walking program -maintain close follow up with psychiatrist and sleep specialist Family history of colon cancer 11/21/2021 Shortness of breath 06/14/2020 Assessment & Plan (08/15/2020 10:44 AM EST): Shortness of breath with exertion in the setting of morbid obesity and deconditioning. PFTs from 07/17/2020 were normal. Clinically, asthma would seem to be unlikely. Echo from 07/2020 was unrevealing for a source of her dyspnea. We discussed that weight loss and exercise are the two most important interventions moving forward. She has become significantly deconditioned in the past several years which has likely led to worsening symptoms and further deconditioning. Patient does not feel that weight loss or exercise will help with her breathing. She has not had a stable exercise regimen in some time and has had difficulty losing weight. We can pursue CPET for more rare causes of shortness of breath that appear to be less likely. -Encourage exercise and weight loss -Discussed referral to nutrition and order placed -Defer to PCP whether patient might be a candidate for bariatric surgery -Trial of albuterol MDI (patient sometimes feels a burning sensation in her chest with exertion) -Referred for CPET at [facility] Assessment & Plan (06/14/2020 1:57 PM EST): Shortness of breath with exertion in the setting of morbid obesity. Suspect there is a significant component of deconditioning as well. We will obtain PFTs but would not be surprised to see an element of restrictive physiology and diffusion impairment, as both of these can be affected by body habitus. Clinically, asthma would seem to be unlikely. Tachycardic on exam today with normal SPO2. Pulmonary embolism very unlikely due to chronicity of symptoms. We will obtain an echo to evaluate for cardiac etiologies of shortness of breath. -Obtain PFTs with bronchodilator -Obtain echo -Encouraged exercise, weight loss--this should be discussed further with PCP due to significant morbidity that obesity confers Marijuana use 06/14/2020 Assessment & Plan (04/06/2025 12:06 PM EDT): Resources provided for reducing marijuana use. Continue to work on reducing with goal of quitting. Assessment & Plan (03/21/2025 3:20 PM EDT): Assessment & Plan (02/24/2024 3:54 PM EDT): Smoking daily for vomiting, pain. Lungs are clear today. Assessment & Plan (11/04/2023 2:51 PM EDT): With report of cyclic vomiting since Covid last year. Mina reports that GI feels that marijuana use is not the cause of vomiting. Await note from upcoming consult. Assessment & Plan (08/15/2020 10:42 AM EST): Vapes marijuana obtained from dispensary 1-2 times per week for chronic pain. While patient's shortness of breath is chronic and most likely related to obesity, vaping can result in lung injury. As such, we have previously advised against vaping. That being said, the marijuana is helpful with her chronic pain and she cannot ingest marijuana/THC because it induced psychosis in the past. Assessment & Plan (06/14/2020 1:53 PM EST): Vapes marijuana obtained from dispensary 1-2 times per week for chronic pain. While patient's shortness of breath is chronic and most likely related to obesity, vaping can result in lung injury. As such, we advise against vaping. That being said, the marijuana is helpful with her chronic pain and she cannot ingest marijuana/THC because it induced psychosis in the past. Breast hypertrophy 06/07/2020 Depression with anxiety 12/08/2018 Assessment & Plan (04/06/2025 12:06 PM EDT): Managed through psychiatry on medication and ketamine infusions. Assessment & Plan (03/21/2025 3:20 PM EDT): Under the care of psychiatry. Mental health symptoms are currently significant. We discussed PHP but Mina does not feel that they require that level of care. Partner is supportive. Assessment & Plan (02/24/2024 3:52 PM EDT): Followed by therapist and psychiatric prescriber. Abilify was increased at the visit today. Mina denies plans to self-harm. Assessment & Plan (01/20/2024 3:33 PM EDT): Under the care of a psychiatric prescriber and Mina meets with a therapist 6x/month. They have an appointment today. Symptoms are overall stable, with waxing and waning intensity. Assessment & Plan (11/21/2023 9:54 AM EDT): PHQ9 and GAD7 show profound depression and anxiety. They do endorse suicidal ideation, but state they do not have a plan and would call crisis if they felt they were a danger to themself. Encouraged to continue with individual therapy as well as group DBT. Referred to the [facility] for the SMART program for resiliency training. Assessment & Plan (11/04/2023 2:52 PM EDT): Followed by ARRON Hoyt and therapist. Mina declined CBT as recommended by pain management. PCOS (polycystic ovarian syndrome) 12/08/2018 Assessment & Plan (04/06/2025 12:06 PM EDT): There has been mild elevation of home blood pressure readings but home cuff seems to be reading high and there is no brand visible on the machine. I don't think that Mina needs to continue to monitor at home. For the hirsutism, we will initiate spironolactone. Possible s/e reviewed. Start with 50 mg po qhs x 1 week. If tolerating, increase to 50 mg BID. Check CMP 1 month later. Follow up based on response. Max dose 100 mg BID but I would wait 6 months for dose adjustment given hair cycle. Orders: Comprehensive metabolic panel; Future Assessment & Plan (03/21/2025 3:20 PM EDT): Bothersome hirsutism. This is not likely to resolve completely with spironolactone but could consider. Follow with DIETETIC TECH. Morbid obesity with BMI of 45.0-49.9, adult 02/2019 Assessment & Plan (03/21/2025 3:20 PM EDT): Continue activity as tolerated. Monitor portion sizes. Medications are likely contributory. Assessment & Plan (02/24/2024 3:54 PM EDT): Activity is limited by chronic disease. Monitor metabolic factors regularly. Resolved Problems Problem Noted Date Diagnosed Date Resolved Date Cervical cancer screening 11/29/2022 Assessment & Plan (11/29/2022 10:15 PM EDT): Pap smear collected Encounter for IUD removal and reinsertion 11/04/2022 11/19/2022 Vaginal yeast infection 11/04/202202/02 Assessment & Plan (11/04/2022 12:53 PM EDT): Large amount of thick white vaginal discharge on exam Patient with vulvar itching/irritation Rx for Diflucan sent Skin yeast infection 11/04/2022 024 Assessment & Plan (11/04/2022 12:54 PM EDT): Skin yeast infection noted in the folds of the thighs/vulva and on the vulva No evidence of superimposed cellulitis Rx for Nystatin powder sent to pharmacy Right wrist pain 12/08/2018 11/19/2022 Encounters Date Type Department Care Team Description 04/11/2025 Telephone [facility] [address], [address] [place] [address] Alla Lancaster [place] 04/06/2025 11:00 AM EDT Office Visit [address] [place] [address] Shelia Sherwood CNP PCOS (polycystic ovarian syndrome) (Primary Dx); Hirsutism; Marijuana use; Depression with anxiety 03/21/2025 1:46 PM EDT - 03/21/2025 11:59 PM EDT Hospital Encounter [facility] [address] [place] [address] Shelia Sherwood CNP Discharge Disposition: Home or Self Care 03/21/2025 1:00 PM EDT Office Visit [facility] [address] [place] [address] Shelia Sherwood CNP Encounter for general adult medical examination with abnormal findings (Primary Dx); Abnormal TSH; Fibromyalgia; Abnormal movement; Elevated blood pressure reading in office without diagnosis of hypertension; Papule of skin; ASCUS of cervix with negative high risk HPV; Morbid obesity with BMI of 45.0-49.9, adult; PCOS (polycystic ovarian syndrome); Obstructive sleep apnea on CPAP; Narcolepsy and cataplexy; Irritable bowel syndrome with diarrhea; Depression with anxiety; Marijuana use; IUD (intrauterine device) in place; Immunization counseling 03/18/2025 Telephone [facility] [address], [address] [place] [address] Alla Lancaster [place] 03/04/2025 Telephone [facility] [address], [address] [place] [address] Alla Lancaster [place] 02/09/2025 Refill [facility] [address], [address] [place] [address] Flores Pope [place] Medication Refill 02/08/2025 1:15 PM EDT Office Visit [facility] [address], [address] [place] [address] Derrick Medina MD MEGAN (obstructive sleep apnea) (Primary Dx); Hypersomnia; Narcolepsy and cataplexy from Last 3 Months Immunizations Immunization Administration Dates Next Due COVID-19 (Pre-05/26) Pfizer Vaccine, mRNA, PF 12/13/2020,11/22/2020 DTaP 11/24/1998 Hepatitis A, Unspecified 08/20/2010,01/05/2009 Hepatitis B, unspecified formulation 1994, 1994,1994 Influenza Quadrivalent MDCK Preservative Free IM 09/27/2023,06/21/2022 Influenza Quadrivalent Preservative Free IM 06/05,06/07/2020 Influenza Trivalent MDCK Pre servative Free IM 05/08/2024 MMR 08/28/1998,09/08/1995 Meningococcal MCV4O 01/07/2012 Meningococcal MCV4P 01/05/2009 PPD Test 01/07/2012 Polio - OPV 11/24/1998 Td (adult),2 Lf Tetanus Toxo id, PF, Adsorbed 09/27/2006 Tdap 02/16/2019 Varicella 01/05/2009,09/27/2006 Family History Medical History Relation Comments Breast cancer Cousin Maternal cousin, diagnosed age 40s. Leukemia Cousin Stroke Father x2 Thyroid cancer Father No contact Colon cancer Maternal Grandfather Diagnosed l ater Lung cancer Maternal Grandfather Smoker Anxiety disorder Maternal Grandmother Dementia Maternal Grandmother Depression Maternal Grandmother Hypertension Maternal Grandmother Stroke Maternal Grandmother Glucose intolerance Mother Hypertension Mother No Known Problems Paternal Grandfather No Known Problems Paternal Grandmother No Known Problems Paternal Half-Brother No Known Problems Paternal Half-Sister 1 No Known Problems Paternal Half-Sister 2 Crohn's disease Neg Hx Diabetes Neg Hx Glaucoma Neg Hx Heart attack Neg Hx Macular degeneration Neg Hx Prostate cancer Neg Hx Ulcerative colitis Neg Hx Relation Status Comments Cousin Father Alive Maternal Grandfather Maternal Grandmother Mother Alive Paternal Grandfather Paternal Grandmother Paternal Half-Brother Alive Paternal Half-Sister 1 Alive Paternal Half-Sister 2 Alive Social History Tobacco Use Types Packs/Day Years Used Date Smoking Tobacco: Never Smokeless Tobacco: Never Tobacco Cessation:Counseling Given: Not Answered Alcohol Use Standard Drinks/Week Comments Not Currently 0 (1 standard drink = 0.6 oz pur e alcohol) 1 drink 1-2x/month (2024) Child or Family Care Answer Date Record ed Do you have problems with on e of the following making it difficult for you to work, study, or receive health care? No 03/20/2025 Education Answer Date Recorded Are you interested in help w ith more adult education (for example, completing high school, GED, job training, learning the [place] language, technical skills, or developing parenting skills)? No 03/20/2025 Are you concerned about learning? Not on file 03/20/2025 No 03/20/2025 Yes 03/20/2025 Food Answer Date Recorded Within the past 6 months we worried whether our food would run out before we got money to buy more. Never True 03/20/2025 Within the past 6 months the food we bought just didn't last and we didn't have enough money to get more. Never True Residential Stability Answer Date Recor ded What is your housing situation today? I have caesar young 03/20/2025 How many times have you move d in the past 12 months? Zero (I did not move) 03/20/2025 Paying for Meds Answer Date Recorded Do you have trouble paying for medicines? No 03/20/2025 Paying Utility Bills Answer Date Record ed Do you have trouble paying your heating or elect ricity bill? No 03/20/2025 Transportation Answer Date Recorded Has the lack of transportati on kept you from medical appointments or from getting medications? No 03/20/2025 Unemployment Answer Date Recorded Are you currently unemployed or working on a part-time or temporary basis, and looking for work? No 03/20/2025 Digital Access Answer Date Recorded No 03/20/2025 Yes 03/20/2025 Do you have reliable internet access at home? Ye s 03/20/2025 Do you have a device (e.g., phone, tablet, computer) with a working camera? Yes 03/20/2025 SNAP & WIC Answer Date Recorded Do you receive benefits from SNAP (the Supplemental Nutrition Assistance Program) or the Food Stamp Program? No 03/20/2025 SNAP is a free program that can help you and your family get access to healthy foods, nutrition classes, utility discounts, and more. Would you be interested in learning more? No 03/20/2025 Can we help you enroll in SNAP? Not on file 03/20/2025 Benefits received from WIC? Not on file 03/04 WIC is a free program, interested in learning mo re? Not on file 03/20/2025 Can we help you enroll in WIC? Not on file 0 03/20/2025 Intimate Partner Violence Answer Date R ecorded Are you denied basic needs s uch as food, clothing, or medical care? No 03/20/2025 In the past 12 months have y ou been in a relationship with a person who hurts, threatens, or tries to control you? No 03/20/2025 Are you denied basic needs s uch as food, clothing, or medical care? No 03/20/2025 In the past 12 months have y ou been in a relationship with a person who hurts, threatens, or tries to control you? 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 on file Not on file Last Filed Vital Signs Vital Sign Reading Time Taken Comments Blood Pressure 128/84 04/06/2025 11:08 AM EDT Pulse 88 04/06/2025 10:50 AM EDT Temperature 36.3 C (97.4 F) 04/06/2025 10:50 AM EDT Respiratory Rate 18 03/21/2025 12:55 PM EDT Oxygen Saturation 98% 04/06/2025 10:50 AM EDT Inhaled Oxygen Concentration - - Weight 131.5 kg (290 lb) 04/06/2025 10:50 AM EDT Height 167 cm (5' 5.75 ) 04/06/2025 10:50 AM EDT Body Mass Index 47.17 04/06/2025 10:50 AM EDT Plan of Treatment Upcoming Encounters Date Type Department Care Team (Late st Contact Info) Description 05/03/2025 1:15 PM EDT Office Visit [facility] [address] [place] [address] 3rd Floor, [address] [place] [address] Derrick Medina MD [address] [place] [address], [address] [place] [address] 04/11/2026 1:00 PM EDT [facility] [address] [place] [address] [place] [address] Shelia Sherwood CNP [address] [facility], [address] [place] [address] [email or web address] Health Maintenance Due Date Last Done Comments COLOGUARD 08/30/2022 FIT TEST 08/30/2022 FOBT 08/30/2022 SIGMOIDOSCOPY 08/30/2022 VIRTUAL COLONOSCOPY 08/30/2022 INFLUENZA VACCINE (#1) 2025 , 09/27/2023, 06/21/2022, Additional history exists REPEAT PHQ 05/06/2025 04/06/2025, 04/06/2025 PAP SMEAR 11/29/2025 11/29/2022, 02/01, 02/16/2019 POTASSIUM LEVEL 03/21/2026 03/21/2025, 04/05, 01/18/2024, Additional history exists DEPRESSION SCREENING 04/06/2026 04/06/2025, 04/06/20 25 Adult Td,Tdap Booster 02/16/2029 02/16/2019, 007 IUD 11/04/2030 11/04/2022 COLONOSCOPY 08/20/2032 08/20/2022 COLORECTAL CANCER SCREENING 08/20/2032 HEPATITIS A VACCINES Completed 08/20/2010, 01/06/20 09 MENINGOCOCCAL VACCINES (ACWY) Completed 01/07/2012, 01/05/2009 HEPATITIS C SCREENING Completed 08/21/2021, 019 HIV ONE-TIME SCREENING (18-65 YEARS) Completed 08/21/2021 COVID-19 VACCINE Completed 05/08/2024, , 06/21/2022, Additional history exists SMOKING STATUS SCREENING (Once After 26 Yrs) Completed 04/06/2025 HIB VACCINES Aged Out No longer eligi ble based on patient's age to complete this topic MENINGOCOCCAL VACCINES (B) Aged Out N o longer eligible based on patient's age to complete this topic PNEUMOCOCCAL VACCINES (0-49 years) Aged Out No longer eligible based on patient's age to complete this topic Medical Devices Implanted Type Area Pulmonologist Intensivist Device Identifier Shelf Expiration Date Model / Serial / Lot Iud Implanted:10/2022 (Quantity not on file) Intrauterine Device Procedures Procedure Name Priority Date/Time Associated Diagnosis Comments FREE T4 Routine 03/21/2025 2:18 PM EDT CBC Routine 03/21/2025 2:18 PM EDT Encounter for general adult medical examination with abnormal findings COMPREHENSIVE METABOLIC PANEL Routine 03/21/2025 2:18 PM EDT Encounter for general adult medical examination with abnormal findings HEMOGLOBIN A1C Routine 03/21/2025 2:18 PM EDT Encounter for general adult medical examination with abnormal findings TSH WITH REFLEX Routine 03/21/2025 2:18 PM EDT Abnormal TSH VITAMIN B12 Routine 03/21/2025 2:18 PM EDT Abnormal movement PAP TEST Routine 11/29/2022 12:00 AM EDT ENDOSCOPY, COLON 08/20/2022 2:06 PM EST HEPATITIS C ANTIBODY, QUALITATIVE Routine 08/21/2021 1:47 PM EST Routine screening for STI (sexually transmitted infection) from Last 3 Months or Most Recently Relevant to Health Maintenance Results * (ABNORMAL) Comprehensive metabolic panel (03/21/2025 2:18 PM EDT) SODIUM 138 133 - 146 mmol/L [facility] POTASSIUM 4.4 3.3 - 5.1 mmol/L [facility] CHLORIDE 101 96 - 108 mmol/L [facility] CO2 25 21 - 35 mmol/L [facility] BUN 14 6 - 19 mg/dL [facility] CREATININE 0.50 0.5 - 1.5 mg/dL [facility] GLUCOSE 97 70 - 99 mg/dL [facility] ALBUMIN 4.2 3.9 - 4.8 g/dL [facility] TOTAL PROTEIN 7.9 6.5 - 8.0 g/dL [facility] CALCIUM 9.4 8.4 - 10.3 mg/dL [facility] ALKALINE PHOSPHATASE 130(H) 39 - 117 U/L [facility] TOTAL BILIRUBIN 0.3 0.0 - 1.2 mg/dL [facility] AST 23 0 - 37 U/L [facility] ALT 36 0 - 40 U/L [facility] GLOBULIN 3.7 1 - 4.8 g/dL [facility] EGFR >120 >59 mL/min/1.7 3m2 [facility] Comment:Estimated glomerular filtration rate calculated using the CKD-EPI refit equation. ANION GAP 16 10 - 20 mmol/L [facility] Blood 03/21/2025 2:18 PM EDT 03/21/2025 2:23 PM EDT [facility] LAB BLOOD ORDERABLES Maryana l Result Performing Organization Address City/[facility]/ZIP Co de Phone Number [address] [address] * (ABNORMAL) TSH with reflex (03/21/2025 2:18 PM EDT) TSH 5.31(H) 0.27 - 4.20 uIU/mL [facility] Blood 03/21/2025 2:18 PM EDT 03/21/2025 2:23 PM EDT [facility] LAB BLOOD ORDERABLES Maryana l Result Performing Organization Address City/[facility]/ZIP Co de Phone Number [address] [address] * CBC (03/21/2025 2:18 PM EDT) WBC 9.31 4.00 - 11.00 K/uL [facility] RBC 4.85 4.00 - 5.20 M/uL [facility] HGB 13.1 12.0 - 16.0 g/dL [facility] HCT 40.7 36.0 - 46.0 % [facility] PLT 322 150 - 450 K/uL [facility] MCV 83.9 80.0 - 100.0 fL [facility] MCH 27.0 27.0 - 31.0 pg [facility] MCHC 32.2 32.0 - 36.0 g/dL [facility] RDW 13.8 11.5 - 14.5 % [facility] MPV 10.2 8.4 - 12.0 fL [facility] NRBC 0.00 0.00 /100 WBCs [facility] ABSOLUTE NRBC 0.00 0.00 K/uL [facility] Blood 03/21/2025 2:18 PM EDT 03/21/2025 2:23 PM EDT us Shelia Sherwood [facility] LAB BLOOD ORDERABLES Maryana l Result Performing Organization Address City/[facility]/ZIP Co de Phone Number [address] [address] * Free T4 (03/21/2025 2:18 PM EDT) FREE T4 1.0 0.9 - 1.7 ng/dL [facility] 03/21/2025 2:18 PM EDT 03/21/2025 2:23 PM EDT Shelia Sherwood [facility] LAB BLOOD ORDERABLES Maryana l Result Performing Organization Address [facility] Co de Phone Number [address] [address] * (ABNORMAL) Hemoglobin A1c (03/21/2025 2:18 PM EDT) HEMOGLOBIN A1C 6.2(H) 4.3 - 5.8 % [facility] Blood 03/21/2025 2:18 PM EDT 03/21/2025 2:23 PM EDT Shelia Sherwood [facility] LAB BLOOD ORDERABLES Maryana l Result Performing Organization Address [facility]/ZIP Co de Phone Number [address] [address] * Vitamin B12 (03/21/2025 2:18 PM EDT) VITAMIN B12 714 232 - 1,245 pg/mL [facility] Blood 03/21/2025 2:18 PM EDT 03/21/2025 2:23 PM EDT Shelia Sherwood [facility] LAB BLOOD ORDERABLES Maryana l Result [address] [address] * (ABNORMAL) Pap Test (11/29/2022 12:00 AM EDT) 11/29/2022 12/02/2022 10: 09 AM EDT Narrative SEE NARRATIVE - 12/04/2022 3:42 PM EDT [address] [address] Obstetrical Tech: Cathy Abel MD DIETETIC TECH Cytology Report FINAL DIAGNOSIS A. PAP SMEAR (SUREPATH) CE: SPECIMEN ADEQUACY: Satisfactory for evaluation; transformation zone present. INTERPRETATION: EPITHELIAL CELL ABNORMALITY - SQUAMOUS. Atypical squamous cells of undetermined significance. Electronically Signed Out By: MD Zhanna Gomez CT(ASCP) By his/her signature above, the pathologist listed as making the Final Diagnosis certifies that he/she has personally reviewed this case and confirmed or corrected the diagnosis. The Pap test is a screening test primarily for squamous cancers and precursors and has associated false-negative and false-positive results. New technologies such as liquid-based preparations may decrease but will not eliminate all false-negative results. Regular sampling and follow-up of unexplained clinical signs and symptoms are recommended to minimize false negative results. PROCEDURES/ADDENDA HPV Testing (Reflex) Ordered Date: 12/02/2022 A. PAP SMEAR (SUREPATH) CE: Human Papilloma Virus Test NEGATIVE for high-risk Human Papilloma Virus types 16, 18, 45 and the Other high risk probe set (Includes 31, 33, 35, 39, 51, 52, 56, 58, 59, 66, 68) Note: Testing performed by [employer] Onclarity HR-HPV analysis. Clinical correlation is advised. This HPV test was performed at [facility], [address] [place] [address]. This test has been FDA approved for SurePath cervical cytology specimens. The accuracy and precision of this test for all other specimen sources has been verified in the Cytopathology Laboratory of the [facility] and has not been cleared or approved by the U.S. Food and Drug Administration. Clinical correlation is advised. CLINICAL HISTORY Date of Last Menstrual Period: Not Provided Menstrual History: Unknown Treatment History: Concurrent BXs Other Clinical Conditions: Screening Pap SPECIMEN SOURCE A: PAP SMEAR (SUREPATH) CE Patient Name: GUI ROSAS : 1995 (Age: 27) Sex: F Institution: [facility] Location: [facility] Date of Collection: 11/29/2022 Date of Reported: 12/02/2022 16:34 Results to: Jennifer Maravilla Jennifer Mauro MD CYTOLOGY ORDER WALT Edited Result - Final SEE NARRATIVE * ENDOSCOPY, COLON (08/20/2022 2:06 PM EST) Narrative Transcriptions Fran Michael MD - 08/20/2022 2:06 PM EST [facility] Patient Name: Gui Rosas Attending MD:: FRAN MICHAEL MD, Procedure Date: 08/20/2022 2:06 PM Date of : 1995 Age: 27 Admit Type: Outpatient Gender: Female Room: [facility] 05 Referring MD: SHELIA SHERWOOD Exam Type: Colonoscopy Indications: Chronic diarrhea Medications: Monitored Anesthesia Care Procedure: Informed consent was obtained from the patientafter discussion of the indications, limitations, alternatives, benefits, and risks of the procedure. Risks specifically discussed include but are not limited to medication reactions, missed lesions, bleeding, perforation, or the need for emergent surgery. Throughout the procedure, the patient's blood pressure, pulse, end-tidal CO2, and oxygensaturations were monitored continuously. The Olympus adult variable colonoscope [id number] #7 was introduced through the anus and advanced to the terminal ileum. The colonoscopy was performedwithout difficulty. The patient tolerated the procedurewell. The quality of the bowel preparation was excellent. The quality of the bowel preparation was evaluated using the BBPS ([place] Bowel Preparation Scale)with scores of: Right Colon = 3, Transverse Colon = 3and Left Colon = 3 (entire mucosa seen well with no residual staining, small fragments of stool oropaque liquid). The total BBPS score equals 9. Anatomical landmarks were photographed. Complications: No immediate complications. Estimated blood loss: Minimal. Findings: The perianal and digital rectal examinations were normal. The terminal ileum appeared normal. Internal hemorrhoids were found duringretroflexion. The hemorrhoids were mild. The exam was otherwise normal throughout theexamined colon. Biopsies for histology were taken with a coldforceps from the right colon and left colon for evaluationof microscopic colitis. Impression: - The examined portion of the ileum was normal. - Internal hemorrhoids. - Biopsies were taken with a cold forceps from the right colon and left colon for evaluation of microscopic colitis. Recommendation: - Discharge patient to home. - Await pathology results. - Repeat colonoscopy at age 44 for screeningpurposes. - Return to GI office as previously scheduled. FRAN MICHAEL MD, 08/20/2022 2:33:47 PM This report has been signed electronically. Number of Addenda: 0 Note Initiated On: 08/20/2022 2:06 PM Procedure Code(s): --- Professional --- 18843, Colonoscopy, flexible; with biopsy, single or multiple --- Technical --- 48252, Colonoscopy, flexible; with biopsy, single or multiple Diagnosis Code(s): --- Professional --- K64.8, Other hemorrhoids K52.9, Noninfective gastroenteritis and colitis, unspecified --- Technical --- K64.8, Other hemorrhoids K52.9, Noninfective gastroenteritis and colitis, unspecified CPT copyright 2020 [place] [employer]. All rights reserved. The codes documented in this report are preliminary and upon inspector firearms reviewmay be revised to meet current compliance requirements. Procedure Date: 08/20/2022 2:06:[address] [place] [address] [facility] PROCEDURE ORDERABLES F inal Result * Hepatitis C antibody, qualitative (08/21/2021 1:47 PM EST) HCV NON-REACTIV E NON-REACTI VE [facility] Blood 08/21/2021 1:47 PM EST 08/21/2021 1:51 PM EST [facility] LAB BLOOD ORDERABLES Maryana l Result [facility] [address] [place] [address] from Last 3 Months or Most Recently Relevant to Health Maintenance Insurance [facility] [place] [id number] [facility] Care Teams Recruitment Intern Relationship Specialty Start Date End Date Shelia Sherwood CNP [address] [place] [address], [address] [place] [address] [email or web address] PCP - General Family Medicine 09/13/19 Reji Zeng MD [address] [place] [address], [address] [place] [address] [email or web address] Insurance Assigned Provider Internal Medicine 12/08/18 Lexus Hoyt, [facility] [address] [place] [address] Psychiatry 06/07/20 Derrick Medina MD [address] [place] [address], [address] [place] [address] [email or web address] Sleep Medicine 02/24/24 Marimar Mustafa PA [address] [place] [address] Physician Agricultural Inspector 03/21/25 Jennifer Mauro MD [address] [place] [address], [address] [place] [address] [email or web address] Obstetrics and Gynecology 03/21/25 Additional Source Comments The information contained in this document represents components of the legal health record. It is not the complete legal health record.[facility]
--- OUTSIDE RECORDS SUMMARY | 2025-04-22 13:59 | XMS_ITS | Encounter Summary ---
Author Organization [facility] Address [address] [place] [address] Phone Care Team Providers Care [employer]older [employer] Name Role Phone Reji Zeng MD Unavailable [phone] Swathi Giordano CNP Primary Care Provider Lexus Hoyt COAL HAULER Unavailable Derrick Medina MD Unavailable [phone] Marimar Mustafa PA Unavailable Jennifer Mauro MD Unavailable Encounter Details Date Type Department Care Team (Late st Contact Info) Description 06/14/2020 Procedure [facility] [address] [place] [address] Social History Tobacco Use Types Packs/Day Years Used Date Smoking Tobacco: Never Smokeless Tobacco: Never Alcohol Use Standard Drinks/Week Comments Yes 0 (1 standard drink = 0.6 oz pur e alcohol) 2 drinks/month Comments Unknown Sex and Gender Information Value Date Recorded Sex Assigned at Female 02/13/2021 6:08 PM EDT Legal Sex Female 10:48 AM EDT Gender Identity Non-binary 02/13/2021 6:08 PM EDT Sexual Orientation Queer 02/13/2021 6: 08 PM EDT 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 file Not on fi le documented as of this encounter Plan of Treatment Upcoming Encounters Date Type Department Care Team (Late st Contact Info) Description 05/03/2025 1:15 PM EDT Office Visit [facility] [address] [place] [address] [address] Floor, [address] [place] [address] Derrick Medina MD [address] [place] [address], [address] [place] [address] 04/11/2026 1:00 PM EDT Office Visit [facility] [address] [place] [address] [place] [address] Swathi Giordano CNP [address] [place] [address], [address] [place] [address] [email or web address] documented as of this encounter Visit Diagnoses Not on filedocumented in this encounter Additional Health Concerns Infection Onset Date Last Indicated Resolved Time CoV-Risk 2021 2021 04/24/2021 1:22 AM EDT Assessment Noted Time PHQ-2 Depression Total Score: 4 02/17/20 19 8:18 AM EDT documented as of this encounter Care Teams [employer] Relationship Specialty Start Date End Date Swathi Giordano CNP [address] [place] [address], [address] [place] [address] PCP - General Family Medicine 09/13/19 Reji Zeng MD [address] [place] [address], [address] [place] [address] Insurance Assigned Provider Internal Medicine 12/08/18 Lexus Hoyt [employer] [address] [place] [address] Psychiatry 06/07/20 Derrick Medina MD [address] [facility], [address] [place] [address] [email or web address] Sleep Medicine 02/24/24 Marimar Mustafa PA [address] [place] [address] Physician Rod Buster 03/21/25 Jennifer Mauro MD [address] [facility], [address] [place] [address] [email or web address] Obstetrics and Gynecology 03/21/25 documented as of this encounter Additional Source Comments The information contained in this document represents components of the legal health record. It is not the complete legal health record.[facility]
== END 2025-04-22 14:40 | disposition home or self-care (01) ==
LOC: HO.PMC 13:51
PROVIDERS: PCP Nurse Practitioner Adult Health; Visit Provider Registered Nurse Emergency
DX: M79.7 Fibromyalgia (principal); G89.4 Chronic pain syndrome; M79.18 Myalgia, other site
CPT/HCPCS: 99213; G2211

== ENCOUNTER → 2025-04-22 13:50 | Outpatient (BNVA) | payer MEDICAID, SELFPAY | PROVIDERS: PCP Nurse Practitioner Adult Health; Visit Provider Registered Nurse Emergency | DX: M79.7 Fibromyalgia (principal); G89.4 Chronic pain syndrome | CPT/HCPCS: 99212 ==